=== PATIENT | male | born 1945 | race Caucasian/White ===

== ENCOUNTER → 2017-05-03 | Outpatient (CLI) | payer MEDICARE | LOC: LAB SHORT 11:13 → PLD 11:13 | DX: D22.5 Melanocytic nevi of trunk (principal) | CPT/HCPCS: 88305 ==

== ENCOUNTER → 2017-05-22 | Outpatient (CLI) | payer MEDICARE | LOC: PLD 13:25 → LAB SHORT 13:25 | DX: D03.59 Melanoma in situ of other part of trunk (principal) | CPT/HCPCS: 88305 ==

== ENCOUNTER → 2017-10-16 | Outpatient (CLI) | payer MEDICARE | END | disposition home or self-care (01) | LOC: LAB SHORT 08:24 → PLD 08:24 | DX: D23.62 Other benign neoplasm of skin of left upper limb, including shoulder (principal) | CPT/HCPCS: 88305 ==

== ENCOUNTER 2018-06-26 06:44 | Day surgery (SDC) | payer MEDICARE ==
[~2018-06-26] VITALS: Ht 185.4 cm; Wt 97.0 kg
[~2018-06-26 06:44] MED LIST: DIALYVITE50000 UNIT PO; ELIQUIS5 MG PO; LISI20 PO; MELATONIN5 M1 PO; MULTIVITAMIN PO; Norvasc2.5 MG PO; PANT40 PO; [UNRECOGNIZED DRUG - OTHER] PO
--- NOTE | 2018-06-26 08:15 | NUR ---
PROCEDURE COMPLETED WITHOUT KNOWN COMPLICATIONS OR ADVERSE EVENTS. NO DISCOMFORT VERBALIZED; NO SEDATION REQUIRED (OR REQUESTED) DESPITE IV ACCESS FOR NEEDS, IF NECESSARY. PT AWAKE/ALERT/APPROPRIATELY CONVERSIVE WITH CONTENT TO CONTEXT OF SITUATION. IV DC'D WITH CANNULA TIP INTACT. FOLDED 2X2 GAUZE PLACED WITH COBAN WRAP. VISITING WITH PATIENT. DISCHARGE INFORMATION PROVIDED IN PORTIONS BY PHYSICIAN, [employer] THERMOP[employer]IC TECHNICIAN AND RN. DISCHARGED BY AMBULATION.
== END 2018-06-26 22:39 | disposition home or self-care (01) ==
LOC: MHTC 06:44
DX: I48.0 Paroxysmal atrial fibrillation (principal); I10 Essential (primary) hypertension; K21.9 Gastro-esophageal reflux disease without esophagitis; M19.90 Unspecified osteoarthritis, unspecified site; K58.9 Irritable bowel syndrome, unspecified; R06.09 Other forms of dyspnea; D45 Polycythemia vera; Z88.2 Allergy status to sulfonamides; Z91.041 Radiographic dye allergy status; Z79.899 Other long term (current) drug therapy; Z79.01 Long term (current) use of anticoagulants; Z85.46 Personal history of malignant neoplasm of prostate; Z90.79 Acquired absence of other genital organ(s)
CPT/HCPCS: 33285; C1764; J2250; J3010

== ENCOUNTER 2018-09-03 08:14 | Day surgery (SDC) | payer MEDICARE ==
--- NOTE | 2018-09-03 16:27 | NUR ---
09/03/18 1627 Gauri Clancy LATE ENTRY FOR TODAY AT 0858 PATIENT TOOK HIS ELIQUIS AT 0700 THIS MORNING, DR. JOHNSON NOTIFIED, CASE HAS BEEN CANCELLED. PATIENT NEEDS TO RESCHEDULE. NO IV STARTED. PATIENT LEFT ORSC AT 0905.
== END 2018-09-03 09:05 | disposition home or self-care (01) ==
LOC: ORSCSDS 08:14
DX: K21.9 Gastro-esophageal reflux disease without esophagitis (principal); Z53.9 Procedure and treatment not carried out, unspecified reason; R12 Heartburn; R15.0 Incomplete defecation
CPT/HCPCS: J2704

== ENCOUNTER 2018-09-13 08:29 | Emergency (ER) | payer MEDICARE ==
[~2018-09-13] VITALS: Ht 190.5 cm; Wt 95.2 kg
[2018-09-13] MEDS ORDERED: AMLO5 (08:45)
[2018-09-13 09:15] LABS: BASOPHILS ABSOLUTE AUTO 0.02 K/mm3 (0.00-0.23); BASOPHILS PERCENT AUTO 0 % (0-2); EOSINOPHILS ABSOLUTE AUTO 0.08 K/mm3 (0.00-0.68); EOSINOPHILS PERCENT AUTO 1 % (0-6); Hematocrit 46.1 % (37.0-53.0); Hemoglobin 15.9 g/dL (13.5-17.5); IMMATURE GRAN ABSOLUTE AUTO 0.05 K/mm3 (0.00-0.10); IMMATURE GRAN PERCENT AUTO 1 % (0-1); LYMPHOCYTES ABSOLUTE AUTO 1.24 K/mm3 (0.84-5.20); LYMPHOCYTES PERCENT AUTO 16 % (21-46); MONOCYTES ABSOLUTE AUTO 0.45 K/mm3 (0.16-1.47); MONOCYTES PERCENT AUTO 6 % (4-13); Mean Corpuscular HGB 30.1 pg (26.0-34.0); Mean Corpuscular HGB Conc 34.5 g/dL (31.5-36.5); Mean Corpuscular Volume 87 fL (80-100); Mean Platelet Volume 9.4 fL (9.1-12.4); NEUTROPHILS PERCENT AUTO 77 % (41-73); Platelet Count 193 K/mm3 (150-400); RDW Coefficient Variation 12.5 % (11.7-14.2); RDW Standard Deviation 39.8 fL (35.1-46.3); Red Blood Cell Count 5.28 M/mm3 (4.30-5.90); White Blood Cell Count 7.84 K/mm3 (4.00-11.30)
[2018-09-13 09:38] LABS: Troponin I <0.015 ng/mL (0.000-0.040)
[2018-09-13 10:51] LABS: Alanine Aminotransfer (ALT/SGP 24 U/L (12-78); Albumin, Blood 3.7 g/dL (3.4-5.0); Albumin/Globulin Ratio 1.1 (0.8-1.8); Alk Phos 68 U/L (50-136); Aspartate Aminotrans (AST/SGOT 11 U/L (12-37); Bilirubin, Total 1.6 mg/dL (0.1-1.0); Blood Urea Nitrogen 24 mg/dL (8-24); Bun/Creatinine Ratio 30.1 (12.0-20.0); CO2, Blood 25 mmol/L (21-32); Calcium, Blood 8.7 mg/dL (8.5-10.1); Globulin, Blood 3.4 g/dL (2.2-4.0); Glomerular Filtration Rate >60 (60-); Glucose, Blood 108 mg/dL (70-99); Total Protein, Blood 7.1 g/dL (6.4-8.2)
[2018-09-13 11:06] LABS: Anion Gap 9 mmol/L (6-16); Chloride, Blood 108 mmol/L (98-108); Potassium, Blood 3.8 mmol/L (3.5-5.5); Sodium, Blood 142 mmol/L (136-145)
[2018-09-13] MEDS ORDERED: SUCR1 PO (11:22)
[2018-09-27] MEDS ORDERED: LISI20 PO (15:19)
[2018-09-27] MEDS ORDERED: Amlodipine Bes2.5 MG PO (15:19)
[2018-09-27] MEDS ORDERED: ELIQUIS5 MG PO (15:19)
[2018-09-27] MEDS ORDERED: VITAMIN D5000 UNIT PO (15:19)
[2018-09-27] MEDS ORDERED: PANT40 PO (15:19)
[2018-09-27] MEDS ORDERED: COMPLETE MULTI1 EAC1 PO (15:20)
[2018-09-27] MEDS ORDERED: MELATONIN5 M1 PO (15:20)
== END 2018-09-13 11:43 | disposition home or self-care (01) ==
LOC: ER 08:29
PROVIDERS: Emergency Medicine
DX: R07.89 Other chest pain (principal); K21.9 Gastro-esophageal reflux disease without esophagitis; Z88.2 Allergy status to sulfonamides
CPT/HCPCS: 36415; 71046; 80053; 83690; 84484; 85025; 93005; 93010; 99284-25

== ENCOUNTER 2018-10-08 07:54 | Day surgery (SDC) | payer MEDICARE ==
[~2018-10-08] VITALS: Ht 190.5 cm; Wt 93.7 kg
[~2018-10-08 07:54] MED LIST changes: +AMLO5; +Amlodipine Bes2.5 MG PO; +COMPLETE MULTI1 EAC1 PO; +SUCR1 PO; +VITAMIN D5000 UNIT PO
--- NOTE | 2018-10-08 08:23 | NUR ---
10/08/18 0823 Krys Bradford NOTED PATIENT APPEARS TO BE IN A-FIB. PATIENT STATES HIS HEARTRATE IS USUALLY IN THE LOW TO MID 50'S. HE TELLS ME HE IS ABLE TO MOW HIS YARD AND WORK AROUND THE YARD WITHOUT PROBLEMS, CHEST PAIN, ETC. WILL PROCEED CAUTIOUSLY.
== END 2018-10-08 10:05 | disposition home or self-care (01) ==
LOC: ORSCSDS 07:54
DX: K21.9 Gastro-esophageal reflux disease without esophagitis (principal); K31.7 Polyp of stomach and duodenum; I48.91 Unspecified atrial fibrillation; I10 Essential (primary) hypertension; K44.9 Diaphragmatic hernia without obstruction or gangrene; Z79.899 Other long term (current) drug therapy
CPT/HCPCS: 88305; J2704; J7120

== ENCOUNTER 2018-11-23 23:41 | Emergency (ER) | payer MEDICARE ==
[~2018-11-23] VITALS: Ht 190.5 cm; Wt 93.0 kg
[2018-11-24] MEDS ORDERED: Percocet 5-3251 EACH PO (03:01)
== END 2018-11-24 03:32 | disposition home or self-care (01) ==
LOC: ER 23:41
DX: M25.531 Pain in right wrist (principal); M79.641 Pain in right hand; Z88.2 Allergy status to sulfonamides; Z88.8 Allergy status to other drugs, medicaments and biological substances; Z79.899 Other long term (current) drug therapy; K21.9 Gastro-esophageal reflux disease without esophagitis; I48.91 Unspecified atrial fibrillation; W01.118A Fall on same level from slipping, tripping and stumbling with subsequent striking against other sharp object, initial encounter
CPT/HCPCS: 29125; 73110; 96372; 99283-25; A9270; J1885

== ENCOUNTER → 2019-09-09 | Outpatient (CLI) | payer MEDICARE ==
[~2019-09-09] MED LIST changes: +Percocet 5-3251 EACH PO
== END | disposition home or self-care (01) ==
LOC: PLD 12:03 → LAB SHORT 12:03
DX: D48.5 Neoplasm of uncertain behavior of skin (principal)
CPT/HCPCS: 88305

== ENCOUNTER → 2019-12-04 | Outpatient (CLI) | payer MEDICARE | LOC: LAB SHORT 19:07 → PLD 19:07 | DX: N39.0 Urinary tract infection, site not specified (principal) | CPT/HCPCS: 87086 ==

== ENCOUNTER → 2020-06-04 | Outpatient (CLI) | payer MEDICARE | END | disposition home or self-care (01) | LOC: LAB 10:30 → LAB SHORT 10:30 | DX: L08.0 Pyoderma (principal) | CPT/HCPCS: 87070; 87205 ==

== ENCOUNTER → 2021-03-08 | Outpatient (CLI) | payer MEDICARE | END | disposition home or self-care (01) | LOC: LAB 11:10 → LAB SHORT 11:10 | DX: D48.5 Neoplasm of uncertain behavior of skin (principal) ==

== ENCOUNTER → 2021-07-14 | Outpatient (CLI) | payer MEDICARE | END | disposition home or self-care (01) | LOC: LAB SHORT 10:50 → PLD 10:50 | DX: D48.5 Neoplasm of uncertain behavior of skin (principal) | CPT/HCPCS: 88305 ==

== ENCOUNTER → 2021-08-16 | Outpatient (CLI) | payer MEDICARE | END | disposition home or self-care (01) | LOC: LAB SHORT 12:38 → PLD 12:38 → LAB 12:38 | DX: D48.5 Neoplasm of uncertain behavior of skin (principal) | CPT/HCPCS: 88305 ==

== ENCOUNTER 2021-10-28 12:17 | Day surgery (SDC) | payer MEDICARE ==
--- NOTE | 2021-10-28 13:19 | NUR ---
PATIENT ARRIVED FOR LOOP RECORDER EXPLANT. PATIENT WAS BROUGHT TO THE PROCEDURE ROOM WITH AND PREPPED. CONSENT VERIFIED. CHEST SHAVED. PATIENT DRAPPED. DR. DINH AT THE BEDSIDE. PATIENT PROCEDURE PERFORMED. LOOP EXPLANTED AND WOULD IRRIAGATED WITH ANCEF BY DR. DINH AND SITE SEWN UP WITH 4.0 VICRYL. STERI STRIPS PLACED, DERMABOND, TELFA AND TEGADERM.
== END 2021-10-28 23:49 | disposition home or self-care (01) ==
LOC: MHTC 12:17
DX: Z45.09 Encounter for adjustment and management of other cardiac device (principal)
CPT/HCPCS: 33286; J0690

== ENCOUNTER 2022-01-31 09:50 | Emergency (ER) | payer MEDICARE ==
[~2022-01-31] VITALS: Ht 190.5 cm; Wt 88.5 kg
[2022-01-31 10:54] LABS: BASOPHILS ABSOLUTE AUTO 0.02 K/mm3 (0.00-0.23); BASOPHILS PERCENT AUTO 0 % (0-2); EOSINOPHILS ABSOLUTE AUTO 0.07 K/mm3 (0.00-0.68); EOSINOPHILS PERCENT AUTO 1 % (0-6); Hematocrit 43.7 % (37.0-53.0); Hemoglobin 14.9 g/dL (13.5-17.5); IMMATURE GRAN ABSOLUTE AUTO 0.03 K/mm3 (0.00-0.10); IMMATURE GRAN PERCENT AUTO 0 % (0-1); LYMPHOCYTES ABSOLUTE AUTO 1.01 K/mm3 (0.84-5.20); LYMPHOCYTES PERCENT AUTO 15 % (21-46); MONOCYTES ABSOLUTE AUTO 0.66 K/mm3 (0.16-1.47); MONOCYTES PERCENT AUTO 10 % (4-13); Mean Corpuscular HGB 29.9 pg (26.0-34.0); Mean Corpuscular HGB Conc 34.1 g/dL (31.5-36.5); Mean Corpuscular Volume 88 fL (80-100); Mean Platelet Volume 9.3 fL (9.1-12.4); NEUTROPHILS ABSOLUTE AUTO 5.19 K/mm3 (1.96-9.15); NEUTROPHILS PERCENT AUTO 74 % (41-73); Platelet Count 190 K/mm3 (150-400); RDW Coefficient Variation 12.5 % (11.7-14.2); RDW Standard Deviation 40.4 fL (35.1-46.3); Red Blood Cell Count 4.98 M/mm3 (4.30-5.90); White Blood Cell Count 6.98 K/mm3 (4.00-11.30)
[2022-01-31 11:14] LABS: Albumin, Blood 3.3 g/dL (3.4-5.0); Albumin/Globulin Ratio 0.8 (0.8-1.8); Bilirubin, Total 1.1 mg/dL (0.1-1.0); Bun/Creatinine Ratio 21.7 (12.0-20.0); Calcium, Blood 9.1 mg/dL (8.5-10.1); Creatinine, Blood 0.74 mg/dL (0.60-1.20); Potassium, Blood 3.9 mmol/L (3.5-5.5); Total Protein, Blood 7.3 g/dL (6.4-8.2)
[2022-01-31] MEDS ORDERED: BENZ100A PO (11:52)
== END 2022-01-31 13:51 | disposition home or self-care (01) ==
LOC: ER 09:50
PROVIDERS: Physician Assistant
DX: U07.1 COVID-19 (principal); R04.2 Hemoptysis; D68.32 Hemorrhagic disorder due to extrinsic circulating anticoagulants; T45.515A Adverse effect of anticoagulants, initial encounter; Z88.2 Allergy status to sulfonamides; Z91.048 Other nonmedicinal substance allergy status; Z79.899 Other long term (current) drug therapy; Z79.01 Long term (current) use of anticoagulants
CPT/HCPCS: 36415; 71045; 80053; 83690; 83880; 84484; 85025; 93005; 93010; A9270; J2765

== ENCOUNTER → 2022-02-28 | Outpatient (CLI) | payer MEDICARE ==
[~2022-02-28] MED LIST changes: +AMLO10 PO; -Amlodipine Bes2.5 MG PO; +BENZ100A PO; +PANT20 PO
== END | disposition home or self-care (01) ==
LOC: LAB SHORT 08:02 → PLD 08:02
DX: L57.0 Actinic keratosis (principal); L85.9 Epidermal thickening, unspecified; L90.5 Scar conditions and fibrosis of skin
CPT/HCPCS: 88305

== ENCOUNTER 2022-03-03 13:22 | Emergency (ER) | payer MEDICARE ==
[~2022-03-03] VITALS: Ht 190.5 cm; Wt 89.8 kg
[~2022-03-03 13:22] MED LIST changes: -PANT20 PO
[2022-03-03] MEDS ORDERED: PANT20 PO (15:20)
== END 2022-03-03 16:01 | disposition home or self-care (01) ==
LOC: ER 13:22
DX: M25.571 Pain in right ankle and joints of right foot (principal); I48.91 Unspecified atrial fibrillation; Z88.2 Allergy status to sulfonamides; Z91.041 Radiographic dye allergy status; Z79.899 Other long term (current) drug therapy; Z79.01 Long term (current) use of anticoagulants; W01.0XXA Fall on same level from slipping, tripping and stumbling without subsequent striking against object, initial encounter
CPT/HCPCS: 73610

== ENCOUNTER 2022-03-19 12:02 | Emergency (ER) | payer MEDICARE ==
[~2022-03-19] VITALS: Ht 190.5 cm; Wt 90.7 kg
[~2022-03-19 12:02] MED LIST changes: +PANT20 PO
== END 2022-03-19 14:30 | disposition left against medical advice (07) ==
LOC: ER 12:02
DX: S93.401A Sprain of unspecified ligament of right ankle, initial encounter (principal); K21.9 Gastro-esophageal reflux disease without esophagitis; X58.XXXA Exposure to other specified factors, initial encounter; Z88.2 Allergy status to sulfonamides; Z91.09 Other allergy status, other than to drugs and biological substances; Z79.01 Long term (current) use of anticoagulants; Z79.899 Other long term (current) drug therapy
CPT/HCPCS: 99283

== ENCOUNTER 2022-08-02 10:11 | Day surgery (SDC) | payer MEDICARE ==
[~2022-08-02] VITALS: Ht 190.5 cm; Wt 85.7 kg
[2022-08-02] MEDS ORDERED: Bentyl20 MG (10:34)
[2022-08-02] MEDS ORDERED: TRIDERM28.4 GM (10:35)
[2022-08-02 12:53] VITALS: BP 126/76
== END 2022-08-02 12:52 | disposition home or self-care (01) ==
LOC: ORSCSDS 10:11
PROVIDERS: Student in an Organized Health Care Education/Training Program
PROC: 0DBC8ZX Excision of Ileocecal Valve, Via Natural or Artificial Opening Endoscopic, Diagnostic (ICD-10-PCS; principal; 2022-08-02 11:30)
PROC: 0DBL8ZX Excision of Transverse Colon, Via Natural or Artificial Opening Endoscopic, Diagnostic (ICD-10-PCS; principal; 2022-08-02 11:30)
DX: K59.09 Other constipation (principal); R10.12 Left upper quadrant pain; D12.3 Benign neoplasm of transverse colon; D12.0 Benign neoplasm of cecum; I10 Essential (primary) hypertension; K21.9 Gastro-esophageal reflux disease without esophagitis; I48.91 Unspecified atrial fibrillation; Z79.01 Long term (current) use of anticoagulants; G70.00 Myasthenia gravis without (acute) exacerbation; Z79.899 Other long term (current) drug therapy
CPT/HCPCS: 88305; J2704; J7120

== ENCOUNTER → 2022-08-09 | Outpatient (CLI) | payer MEDICARE ==
[~2022-08-09] MED LIST changes: +Bentyl20 MG; +TRIDERM28.4 GM
== END ==
LOC: LAB SHORT 16:11 → LAB 16:11
DX: L08.0 Pyoderma (principal)
CPT/HCPCS: 87070; 87205

== ENCOUNTER 2022-11-18 11:43 | Emergency (ER) | payer MEDICARE ==
[~2022-11-18] VITALS: Ht 190.5 cm; Wt 93.0 kg
[2022-11-18 12:15] VITALS: BP 137/71
== END 2022-11-18 15:00 | disposition home or self-care (01) ==
LOC: ER 11:43
DX: S60.221A Contusion of right hand, initial encounter (principal); I48.91 Unspecified atrial fibrillation; K21.9 Gastro-esophageal reflux disease without esophagitis; Z88.8 Allergy status to other drugs, medicaments and biological substances; Z88.2 Allergy status to sulfonamides; Z79.01 Long term (current) use of anticoagulants; Z79.899 Other long term (current) drug therapy; W10.9XXA Fall (on) (from) unspecified stairs and steps, initial encounter
CPT/HCPCS: 70450; 73130; 99283-25

== ENCOUNTER 2023-12-11 17:14 | Emergency (ER) | payer MEDICARE ==
[~2023-12-11] VITALS: Ht 190.5 cm; Wt 82.5 kg
[2023-12-11 17:44] LABS: BASOPHILS ABSOLUTE AUTO 0.03 K/mm3 (0.00-0.23); BASOPHILS PERCENT AUTO 0 % (0-2); EOSINOPHILS ABSOLUTE AUTO 0.04 K/mm3 (0.00-0.68); EOSINOPHILS PERCENT AUTO 0 % (0-6); Hematocrit 42.4 % (37.0-53.0); Hemoglobin 14.8 g/dL (13.5-17.5); IMMATURE GRAN ABSOLUTE AUTO 0.05 K/mm3 (0.00-0.10); IMMATURE GRAN PERCENT AUTO 0 % (0-1); LYMPHOCYTES ABSOLUTE AUTO 1.36 K/mm3 (0.84-5.20); LYMPHOCYTES PERCENT AUTO 9 % (21-46); MONOCYTES ABSOLUTE AUTO 0.85 K/mm3 (0.16-1.47); MONOCYTES PERCENT AUTO 6 % (4-13); Mean Corpuscular HGB 30.2 pg (26.0-34.0); Mean Corpuscular HGB Conc 34.9 g/dL (31.5-36.5); Mean Corpuscular Volume 87 fL (80-100); Mean Platelet Volume 9.1 fL (9.1-12.4); NEUTROPHILS ABSOLUTE AUTO 12.99 K/mm3 (1.96-9.15); NEUTROPHILS PERCENT AUTO 85 % (41-73); Platelet Count 196 K/mm3 (150-400); RDW Coefficient Variation 12.5 % (11.7-14.2); RDW Standard Deviation 39.4 fL (35.1-46.3); White Blood Cell Count 15.32 K/mm3 (4.00-11.30)
[2023-12-11 17:58] LABS: Albumin, Blood 3.5 g/dL (3.4-5.0); Albumin/Globulin Ratio 0.9 (0.8-1.8); Bun/Creatinine Ratio 25.6 (12.0-20.0); Calcium, Blood 9.2 mg/dL (8.5-10.1); Creatinine, Blood 0.98 mg/dL (0.60-1.20); Globulin, Blood 3.9 g/dL (2.2-4.0); Potassium, Blood 3.8 mmol/L (3.5-5.5); Total Protein, Blood 7.4 g/dL (6.4-8.2)
[2023-12-11 22:55] VITALS: BP 125/63
== END 2023-12-11 22:56 | disposition home or self-care (01) ==
LOC: ER 17:14
PROVIDERS: Student in an Organized Health Care Education/Training Program
DX: R07.89 Other chest pain (principal); K21.9 Gastro-esophageal reflux disease without esophagitis; I48.91 Unspecified atrial fibrillation; K44.9 Diaphragmatic hernia without obstruction or gangrene; G70.00 Myasthenia gravis without (acute) exacerbation; Z88.8 Allergy status to other drugs, medicaments and biological substances; Z88.2 Allergy status to sulfonamides; Z91.041 Radiographic dye allergy status; Z79.01 Long term (current) use of anticoagulants; Z79.899 Other long term (current) drug therapy
CPT/HCPCS: 71046; 80053; 84484; 85025

== ENCOUNTER 2024-03-21 04:25 | Emergency (ER) | payer MEDICARE ==
[~2024-03-21] VITALS: Ht 190.5 cm; Wt 86.2 kg
[2024-03-21] MEDS ORDERED: Mag Hydrox/AL Hydrox/Simeth 30 ML UDC PO ONE (04:35)
[2024-03-21 04:53] LABS: BASOPHILS ABSOLUTE AUTO 0.02 K/mm3 (0.00-0.23); BASOPHILS PERCENT AUTO 0 % (0-2); EOSINOPHILS ABSOLUTE AUTO 0.11 K/mm3 (0.00-0.68); EOSINOPHILS PERCENT AUTO 2 % (0-6); Hematocrit 40.8 % (37.0-53.0); Hemoglobin 14.1 g/dL (13.5-17.5); IMMATURE GRAN ABSOLUTE AUTO 0.04 K/mm3 (0.00-0.10); IMMATURE GRAN PERCENT AUTO 1 % (0-1); LYMPHOCYTES ABSOLUTE AUTO 1.27 K/mm3 (0.84-5.20); LYMPHOCYTES PERCENT AUTO 17 % (21-46); MONOCYTES ABSOLUTE AUTO 0.46 K/mm3 (0.16-1.47); MONOCYTES PERCENT AUTO 6 % (4-13); Mean Corpuscular HGB 30.3 pg (26.0-34.0); Mean Corpuscular HGB Conc 34.6 g/dL (31.5-36.5); Mean Corpuscular Volume 88 fL (80-100); Mean Platelet Volume 8.8 fL (9.1-12.4); NEUTROPHILS ABSOLUTE AUTO 5.52 K/mm3 (1.96-9.15); NEUTROPHILS PERCENT AUTO 74 % (41-73); Platelet Count 189 K/mm3 (150-400); RDW Coefficient Variation 12.7 % (11.7-14.2); RDW Standard Deviation 40.6 fL (35.1-46.3); Red Blood Cell Count 4.65 M/mm3 (4.30-5.90); White Blood Cell Count 7.42 K/mm3 (4.00-11.30)
[2024-03-21 05:12] LABS: Albumin, Blood 3.4 g/dL (3.4-5.0); Albumin/Globulin Ratio 0.9 (0.8-1.8); Bilirubin, Total 0.9 mg/dL (0.1-1.0); Bun/Creatinine Ratio 22.3 (12.0-20.0); Calcium, Blood 8.9 mg/dL (8.5-10.1); Creatinine, Blood 0.81 mg/dL (0.60-1.20); Globulin, Blood 3.7 g/dL (2.2-4.0); Total Protein, Blood 7.1 g/dL (6.4-8.2)
[2024-03-21 07:45] VITALS: BP 175/79
== END 2024-03-21 08:08 | disposition home or self-care (01) ==
LOC: ER 04:25
PROVIDERS: Emergency Medicine
DX: R07.89 Other chest pain (principal); K21.9 Gastro-esophageal reflux disease without esophagitis; Z79.899 Other long term (current) drug therapy; Z88.2 Allergy status to sulfonamides; Z91.041 Radiographic dye allergy status; Z88.8 Allergy status to other drugs, medicaments and biological substances
CPT/HCPCS: 71045; 80053; 83690; 83880; 84484; 85025; 93005; 93010; 99285-25; A9270

== ENCOUNTER 2024-04-06 14:32 | Emergency (ER) | payer MEDICARE ==
[~2024-04-06] VITALS: Ht 190.5 cm; Wt 85.7 kg
[2024-04-06 15:15] VITALS: BP 127/96
[2024-04-06] MEDS ORDERED: HYDCOR2.5C PR (16:57)
== END 2024-04-06 17:05 | disposition home or self-care (01) ==
LOC: ER 14:32
DX: R21 Rash and other nonspecific skin eruption (principal); L29.9 Pruritus, unspecified; Z88.2 Allergy status to sulfonamides; Z88.8 Allergy status to other drugs, medicaments and biological substances; Z91.048 Other nonmedicinal substance allergy status; Z79.01 Long term (current) use of anticoagulants
CPT/HCPCS: 99282

== ENCOUNTER 2024-04-20 07:30 | Emergency (ER) | payer MEDICARE ==
[~2024-04-20] VITALS: Ht 190.5 cm; Wt 81.7 kg
[~2024-04-20 07:30] MED LIST changes: +HYDCOR2.5C PR
[2024-04-20 08:45] LABS: Source, Urine Clean Catch
[2024-04-20 08:50] LABS: Bilirubin, Urine Neg (Neg); Blood, Urine 2+ (Neg); Glucose Qualitative, Urine Neg (Neg); Ketones, Urine Neg (Neg); Leukocyte Esterase, Urine Neg (Neg); Nitrite, Urine Neg (Neg); Protein, Urine Neg (Neg); Urobilinogen, Urine NORM (Normal)
[2024-04-20 08:57] LABS: Appearance, Urine Hazy (Clear); Bacteria Not Seen /hpf; Color, Urine Yellow (P-Yellow); Squamous Epithelial Cells Rare /hpf (Few); White Blood Cells, Urine Not Seen /hpf (0-5)
[2024-04-20] MEDS ORDERED: ALEVAZOL56.7 G1 TOP (09:24)
[2024-04-20 09:54] VITALS: BP 170/98
== END 2024-04-20 09:55 | disposition home or self-care (01) ==
LOC: ER 07:30
PROVIDERS: Student in an Organized Health Care Education/Training Program
DX: B37.42 Candidal balanitis (principal); R30.0 Dysuria; K21.9 Gastro-esophageal reflux disease without esophagitis; I48.91 Unspecified atrial fibrillation; Z79.899 Other long term (current) drug therapy; Z88.2 Allergy status to sulfonamides; Z91.041 Radiographic dye allergy status; Z88.8 Allergy status to other drugs, medicaments and biological substances
CPT/HCPCS: 81001; 99283

== ENCOUNTER 2024-04-28 07:01 | Observation (INO) | payer MEDICARE ==
[~2024-04-28] VITALS: Ht 190.5 cm; Wt 78.6 kg
[~2024-04-28 07:01] MED LIST changes: +ALEVAZOL56.7 G1 TOP; -PANT20 PO
[2024-04-28 07:41] LABS: BASOPHILS ABSOLUTE AUTO 0.03 K/mm3 (0.00-0.23); BASOPHILS PERCENT AUTO 0 % (0-2); EOSINOPHILS ABSOLUTE AUTO 0.02 K/mm3 (0.00-0.68); EOSINOPHILS PERCENT AUTO 0 % (0-6); Hematocrit 45.7 % (37.0-53.0); Hemoglobin 15.3 g/dL (13.5-17.5); IMMATURE GRAN ABSOLUTE AUTO 0.07 K/mm3 (0.00-0.10); IMMATURE GRAN PERCENT AUTO 0 % (0-1); LYMPHOCYTES ABSOLUTE AUTO 0.79 K/mm3 (0.84-5.20); LYMPHOCYTES PERCENT AUTO 5 % (21-46); MONOCYTES ABSOLUTE AUTO 0.96 K/mm3 (0.16-1.47); MONOCYTES PERCENT AUTO 6 % (4-13); Mean Corpuscular HGB 30.5 pg (26.0-34.0); Mean Corpuscular HGB Conc 33.5 g/dL (31.5-36.5); Mean Corpuscular Volume 91 fL (80-100); Mean Platelet Volume 9.1 fL (9.1-12.4); NEUTROPHILS ABSOLUTE AUTO 14.91 K/mm3 (1.96-9.15); NEUTROPHILS PERCENT AUTO 89 % (41-73); Platelet Count 172 K/mm3 (150-400); RDW Coefficient Variation 12.5 % (11.7-14.2); Red Blood Cell Count 5.02 M/mm3 (4.30-5.90); White Blood Cell Count 16.78 K/mm3 (4.00-11.30)
[2024-04-28] MEDS ORDERED: Aspirin 325 MG Tab PO ONE (07:55)
[2024-04-28 07:59] LABS: Albumin, Blood 3.5 g/dL (3.4-5.0); Albumin/Globulin Ratio 0.9 (0.8-1.8); Bilirubin, Total 1.8 mg/dL (0.1-1.0); Bun/Creatinine Ratio 27.1 (12.0-20.0); Creatinine, Blood 0.74 mg/dL (0.60-1.20); Globulin, Blood 4.1 g/dL (2.2-4.0); Total Protein, Blood 7.6 g/dL (6.4-8.2)
[2024-04-28] MEDS ORDERED: D5W-1/2NS KCl 20mEq 1,000 ML IV SCH (12:00)
[2024-04-28 14:42] VITALS: BP 174/78
[2024-04-28] MEDS ORDERED: MELATONIN5 M1 PO (14:50)
[2024-04-28] MEDS ORDERED: VITAMIN D5000 UNIT PO (14:51)
--- NOTE | 2024-04-28 16:42 | NUR ---
PT ADMITTED TO ROOM 354 FROM ED, WHEELCHAIR TX. PT ABLE TO AMBULATE SBA, STEADY ON FEET. ACCOMPANYING PT, ABLE TO HELP WITH HX QUESTIONS SINCE PT HAS HX ALZHEIMERS AND NOT A GREAT HISTORIAN. FAMILY ORIENTED TO ROOM AND CALL LIGHT AND SAFETY INCLUDING BED ALARM. PT DENIES CHEST PAIN CURRENTLY, STATES HE HAS "BURNING IN HIS ESOPHAGUS". COMPLETED HX AND ASSESSMENT
[2024-04-28] MEDS ORDERED: Mag Hydrox/AL Hydrox/Simeth 30 ML UDC PO ONE (17:00)
[2024-04-28] MEDS ORDERED: Mag Hydrox/AL Hydrox/Simeth 30 ML UDC PO PRN (17:00)
--- NOTE | 2024-04-28 17:29 | NUR ---
SUMMARY- PT ALERT TO SELF, PLACE AND CIRCUMSTANCES, SOFT VERBAL HX OF ALZHEIMERS; A POOR HISTORIAN. MILDLY FORGETFUL TO DETAILS. PT HAS REMEMBERED TO USE CALL LIGHT, AMBULATES TO BATHROOM SBA. WHEN ASKED IF PT HAD CHEST PAIN HE STATED HE HAD "BURNING IN HIS ESPHAGUS" RECEIVED AN ORDER FOR MAALOX WITH SUBSEQUENT RELEIF OF HEART BURN. NO OTHER COMPLAINTS OF CHEST PAIN, INSTRUCTED TO CALL SHOULD CHEST PAIN RESUME. PT TOLERATING FLUIDS. WILL HAVE DINNER AND NPO AFTER MIDNIGHT. WILL REPORT TO NOC RN
[2024-04-28 19:34] VITALS: BP 159/89
[2024-04-28] MEDS ORDERED: Melatonin 5 MG Tablet PO SCH (21:00)
[2024-04-28] MEDS ORDERED: Apixaban 5 MG Tab PO SCH (21:00)
[2024-04-29 03:03] VITALS: BP 156/86
[2024-04-29] MEDS ORDERED: Pantoprazole Sodium 40 MG Tab PO SCH (06:00)
[2024-04-29 07:38] VITALS: BP 183/75
[2024-04-29 13:02] VITALS: BP 186/81
[2024-04-29] MEDS ORDERED: Regadenoson 0.4 MG/5 ML SYRINGE ONE (14:04)
[2024-04-29] MEDS ORDERED: Caffeine Citrated 60 MG/3 ML Vial ONE (14:04)
--- NOTE | 2024-04-29 16:08 | NUR ---
SHIFT SUMMARY MR CELIS IS ORIENTATED TO SELF, PLACE, SITUATION, NOT DATE AND GENERALLY FORGETFUL. HIS IS AT HIS BEDSIDE. SECOND PART OF STRESS TEST JUST COMPLETED. MR CELIS HAS DENIED CHEST PAIN TO RN. HE HAS BEEN ANXIOUS TO HAVE TESTING COMPLETED AND BE DISCHARGED FROM HOSPITAL. BP ELEVATED. DR LERMA AWARE OF BP. PT AND HIS DENY HAVING HISTORY OF HYPERTENSION. BED LOW, CALL LIGHT IN REACH.
[2024-04-29 16:29] VITALS: BP 122/65
[2024-04-29 20:35] VITALS: BP 189/84
[2024-04-30 00:04] VITALS: BP 194/84
--- NOTE | 2024-04-30 00:26 | NUR ---
DR. TRIMBLE NOTIFIED OF PT ELEVATED BP READINGS AT 2035 AND 0000, PT ASYMPTOMATIC. MD TO REVIEW CHART AND ENTER ORDERS.
[2024-04-30] MEDS ORDERED: HydrALAZINE HCl 20 MG / ML 1ML Vial IV PRN (00:40)
[2024-04-30 01:20] VITALS: BP 164/84
[2024-04-30 02:54] VITALS: BP 170/86
--- NOTE | 2024-04-30 04:33 | NUR ---
SOCCER BALL ASSEMBLER SUMMARY: PT ADMITTED FOR CP/SOB. FULL CODE. A&O X3-4, FORGETFUL. NOTED DX OF MILD DEMENTIA / ALZHEIMER'S. PT INDEPENDENT WITH BED MOBILITY. AMBULATED 1 PERSON SBA TO BATHROOM TO VOID X1. NOTED ELEVATED BP READINGS AT 2034: 189/84, 0004: 194/84. PER GRANTS SPECIALIST: SR @64 WITH PAC'S. DENIES CP / CHEST PRESSURE. DR. TRIMBLE NOTIFIED. NEW ORDER FOR HYDRALAZINE 10MG IV Q 4HR PRN. MANUAL RECHECK BP PRIOR TO ADMINISTERING PRN HYDRALAZINE AT 0118: 164/84. PERAMETERS NOT MET TO ADMINISTER MEDICATION. PLAN TO D/C HOME IN AM PENDING 2ND STRESS TEST RESULTS. AT APPROXIMATELY 0245 THIS NURSE WAS NOTIFIED THAT PT GOT OOB AND WANDERED THROUGH HALLWAY WHILE THIS NURSE WAS ON BREAK. STAFF ASSISTED PT BACK TO BED. REASSESSMENT OF PT ORIENTATION AROUND 0250, PT ORIENTED TO PERSON, PLACE (TOWN), TIME (MONTH AND YEAR). PT ABLE TO STATE HE IS IN THE HOSPITAL AND WHY HE IS AT THE HOSPITAL AT BEGINNING OF SHIFT. PT UP OOB MULTIPLE TIMES BETWEEN 0300 AND 0415. THIS NURSE ASSISTED PT WHILE AMBULATING UP AND DOWN HALLWAY. PT ASSISTED TO CALL HIS . THIS NURSE SPOKE WITH PT'S AND SHE RADHA HX OF INGIN AND THAT THIS IS A NEW ONSET OF HS CONFUSION. SHE DOES CONFIRM HX OF SOME MILD CONFUSION, BUT NOT TO THIS EXTENT. PT REPORTS VISUAL HALLUCINATIONS TO THIS NURSE AND HIS WHILE SPEAKING TO HER ON THE PHONE. NO S/S OF PAIN OR DISTRESS. DENIES PAIN WHEN ASKED. PT REPORTS FEELING "AT EASE" AFTER SPEAKING WITH HIS AND ASSISTED BACK TO BED. PT ENCOURAGED TO GET SOME SLEEP. CALL LIGHT IN REACH. BED IN LOWEST POSITION. BED ALARM ON. CARES CONTINUE ORDERED. WILL CONTINUE TO MONITOR.
[2024-04-30 06:11] LABS: BASOPHILS ABSOLUTE AUTO 0.01 K/mm3 (0.00-0.23); BASOPHILS PERCENT AUTO 0 % (0-2); EOSINOPHILS ABSOLUTE AUTO 0.02 K/mm3 (0.00-0.68); EOSINOPHILS PERCENT AUTO 0 % (0-6); Hematocrit 41.7 % (37.0-53.0); Hemoglobin 14.2 g/dL (13.5-17.5); IMMATURE GRAN ABSOLUTE AUTO 0.03 K/mm3 (0.00-0.10); IMMATURE GRAN PERCENT AUTO 0 % (0-1); LYMPHOCYTES ABSOLUTE AUTO 0.72 K/mm3 (0.84-5.20); LYMPHOCYTES PERCENT AUTO 8 % (21-46); MONOCYTES ABSOLUTE AUTO 0.45 K/mm3 (0.16-1.47); MONOCYTES PERCENT AUTO 5 % (4-13); Mean Corpuscular HGB 29.5 pg (26.0-34.0); Mean Corpuscular HGB Conc 34.1 g/dL (31.5-36.5); Mean Corpuscular Volume 87 fL (80-100); Mean Platelet Volume 9.1 fL (9.1-12.4); NEUTROPHILS ABSOLUTE AUTO 7.47 K/mm3 (1.96-9.15); NEUTROPHILS PERCENT AUTO 86 % (41-73); Platelet Count 197 K/mm3 (150-400); RDW Coefficient Variation 12.3 % (11.7-14.2); RDW Standard Deviation 39.3 fL (35.1-46.3); Red Blood Cell Count 4.81 M/mm3 (4.30-5.90)
--- NOTE | 2024-04-30 06:25 | NUR ---
PT CONTINUES TO BE AGITATED AND HAVE VISUAL HALLUCINATIONS. DR. TRIMBLE NOTIFIED OF CHANGES AND 'S CONCERN (SEE SHIFT SUMMARY). MD TO REVIEW CHART AND MAKE CHANGES IF NEEDED. TO PASS ONTO ONCOMING RN.
[2024-04-30 06:35] LABS: Creatinine, Blood 0.75 mg/dL (0.60-1.20); Potassium, Blood 3.8 mmol/L (3.5-5.5)
[2024-04-30 07:13] VITALS: BP 195/82
[2024-04-30] MEDS ORDERED: Prinivil10 MG PO (08:09)
--- NOTE | 2024-04-30 08:29 | NUR ---
DISCHARGE NOTE PT DISCHARGED TO HOME, PICKED UP BY HIS . TELE RETURNED, IV REMOVED. PROVIDER EDUCATED AND NURSE EDUCATED ON PT'S CURRENT SITUATION. DISCHARGE PACKET PROVIDED TO PT'S . PT WALKED DOWN TO VEHICLE BY NURSE.
--- NOTE | 2024-04-30 08:30 | NUR ---
NOTE: PT BP ELEVATED THIS AM, MEDICATED PER THE EMAR. PROVIDER AWARE.
[2024-04-30] MEDS ORDERED: Lisinopril 10 MG Tab PO SCH (09:00)
== END 2024-04-30 08:26 | disposition home or self-care (01) ==
LOC: ER 07:01 → MEDS 07:02
PROVIDERS: Emergency Medicine; Family Medicine; ADMIT Internal Medicine Endocrinology, Diabetes & Metabolism
DX: I25.9 Chronic ischemic heart disease, unspecified (principal); I48.20 Chronic atrial fibrillation, unspecified; K21.9 Gastro-esophageal reflux disease without esophagitis; G30.9 Alzheimer's disease, unspecified; F02.A0 Dementia in other diseases classified elsewhere, mild, without behavioral disturbance, psychotic disturbance, mood disturbance, and anxiety; G47.00 Insomnia, unspecified; I10 Essential (primary) hypertension; G70.00 Myasthenia gravis without (acute) exacerbation; Z88.2 Allergy status to sulfonamides; Z91.041 Radiographic dye allergy status; Z79.01 Long term (current) use of anticoagulants; Z79.899 Other long term (current) drug therapy; E78.00 Pure hypercholesterolemia, unspecified
CPT/HCPCS: 36415; 71046; 78452; 80048; 80053; 83690; 83880; 84484; 85025; 93005; 93010; 93017; 96374; 99285-25; A9270; A9500; G0378; J0360; J0706; J2785

== ENCOUNTER 2024-12-27 11:57 | Emergency (ER) | payer MEDICARE ==
[~2024-12-27] VITALS: Ht 190.5 cm; Wt 81.7 kg
[~2024-12-27 11:57] MED LIST changes: +Prinivil10 MG PO
[2024-12-27 12:10] VITALS: BP 140/75
[2024-12-27] MEDS ORDERED: CEPH500 PO (12:16)
== END 2024-12-27 12:20 | disposition home or self-care (01) ==
LOC: ER 11:57
DX: T81.49XA Infection following a procedure, other surgical site, initial encounter (principal); L03.312 Cellulitis of back [any part except buttock and flank]; I48.91 Unspecified atrial fibrillation; K21.9 Gastro-esophageal reflux disease without esophagitis; Z88.2 Allergy status to sulfonamides; Z91.041 Radiographic dye allergy status; Z79.01 Long term (current) use of anticoagulants; Z79.899 Other long term (current) drug therapy
CPT/HCPCS: 99283

== ENCOUNTER 2024-12-30 05:10 | Emergency (ER) | payer MEDICARE ==
[~2024-12-30] VITALS: Ht 190.5 cm; Wt 78.0 kg
[~2024-12-30 05:10] MED LIST changes: +CEPH500 PO
[2024-12-30 05:54] LABS: BASOPHILS ABSOLUTE AUTO 0.03 K/mm3 (0.00-0.23); BASOPHILS PERCENT AUTO 0 % (0-2); EOSINOPHILS ABSOLUTE AUTO 0.13 K/mm3 (0.00-0.68); EOSINOPHILS PERCENT AUTO 2 % (0-6); Hematocrit 42.4 % (37.0-53.0); Hemoglobin 15.0 g/dL (13.5-17.5); IMMATURE GRAN ABSOLUTE AUTO 0.04 K/mm3 (0.00-0.10); IMMATURE GRAN PERCENT AUTO 1 % (0-1); LYMPHOCYTES ABSOLUTE AUTO 1.32 K/mm3 (0.84-5.20); LYMPHOCYTES PERCENT AUTO 18 % (21-46); MONOCYTES ABSOLUTE AUTO 0.42 K/mm3 (0.16-1.47); MONOCYTES PERCENT AUTO 6 % (4-13); Mean Corpuscular HGB Conc 35.4 g/dL (31.5-36.5); Mean Corpuscular Volume 85 fL (80-100); NEUTROPHILS ABSOLUTE AUTO 5.61 K/mm3 (1.96-9.15); NEUTROPHILS PERCENT AUTO 74 % (41-73); NRBC ABSOLUTE 0.00 K/mm3 (0.00-0.02); NRBC Auto 0.0 /100 WBC (0.0-0.2); Platelet Count 188 K/mm3 (150-400); RDW Coefficient Variation 12.6 % (11.7-14.2); RDW Standard Deviation 38.5 fL (35.1-46.3)
[2024-12-30 06:08] LABS: Prothrombin Time Results 11.9 Sec (9.7-11.5)
[2024-12-30 06:16] LABS: Alanine Aminotransfer (ALT/SGP 23.0 U/L (12-78); Albumin, Blood 3.4 g/dL (3.4-5.0); Albumin/Globulin Ratio 1.0 (0.8-1.8); Anion Gap 8.0 mmol/L (3-11); Aspartate Aminotrans (AST/SGOT 19.0 U/L (12-37); Bilirubin, Total 1.6 mg/dL (0.1-1.0); Blood Urea Nitrogen 19.0 mg/dL (8-24); CO2, Blood 24.0 mmol/L (21-32); Calcium, Blood 9.0 mg/dL (8.5-10.1); Chloride, Blood 112.0 mmol/L (98-108); Creatinine, Blood 0.79 mg/dL (0.60-1.20); Globulin, Blood 3.5 g/dL (2.2-4.0); Glucose, Blood 101.0 mg/dL (70-99); Potassium, Blood 3.8 mmol/L (3.5-5.5); Sodium, Blood 140.0 mmol/L (136-145); Total Protein, Blood 6.9 g/dL (6.4-8.2)
[2024-12-30 08:00] VITALS: BP 177/80
== END 2024-12-30 08:09 | disposition home or self-care (01) ==
LOC: ER 05:10
PROVIDERS: Emergency Medicine
DX: Z03.6 Encounter for observation for suspected toxic effect from ingested substance ruled out (principal); I48.91 Unspecified atrial fibrillation; G30.9 Alzheimer's disease, unspecified; F02.A0 Dementia in other diseases classified elsewhere, mild, without behavioral disturbance, psychotic disturbance, mood disturbance, and anxiety; E78.00 Pure hypercholesterolemia, unspecified; I10 Essential (primary) hypertension; K21.9 Gastro-esophageal reflux disease without esophagitis; Z88.2 Allergy status to sulfonamides; Z91.041 Radiographic dye allergy status; Z79.01 Long term (current) use of anticoagulants; Z79.899 Other long term (current) drug therapy
CPT/HCPCS: 70450; 72125; 80053; 84484; 85025; 85610; 99284-25

== ENCOUNTER 2025-01-14 13:48 | Inpatient (IN) | payer MEDICARE ==
[~2025-01-14] VITALS: Ht 188 cm; Wt 79.4 kg
[2025-01-14] MEDS ORDERED: Ondansetron HCl 2 MG / ML 2ML Vial IV ONE ×2 (14:25→17:45)
[2025-01-14] MEDS ORDERED: Morphine Sulfate 4 MG/1 ML Injection IV ONE (14:25)
[2025-01-14 14:44] LABS: BASOPHILS ABSOLUTE AUTO 0.02 K/mm3 (0.00-0.23); BASOPHILS PERCENT AUTO 0 % (0-2); NRBC ABSOLUTE 0.00 K/mm3 (0.00-0.02); NRBC Auto 0.0 /100 WBC (0.0-0.2); RDW Coefficient Variation 12.8 % (11.7-14.2)
[2025-01-14 14:51] LABS: EOSINOPHILS ABSOLUTE AUTO 0.06 K/mm3 (0.00-0.68); EOSINOPHILS PERCENT AUTO 1 % (0-6); Hematocrit 48.3 % (37.0-53.0); Hemoglobin 16.7 g/dL (13.5-17.5); IMMATURE GRAN ABSOLUTE AUTO 0.04 K/mm3 (0.00-0.10); IMMATURE GRAN PERCENT AUTO 0 % (0-1); LYMPHOCYTES ABSOLUTE AUTO 1.34 K/mm3 (0.84-5.20); LYMPHOCYTES PERCENT AUTO 13 % (21-46); MONOCYTES ABSOLUTE AUTO 0.54 K/mm3 (0.16-1.47); MONOCYTES PERCENT AUTO 5 % (4-13); Mean Corpuscular HGB Conc 34.6 g/dL (31.5-36.5); Mean Corpuscular Volume 84 fL (80-100); NEUTROPHILS ABSOLUTE AUTO 8.67 K/mm3 (1.96-9.15); NEUTROPHILS PERCENT AUTO 81 % (41-73); RDW Standard Deviation 39.1 fL (35.1-46.3)
[2025-01-14 15:14] LABS: Platelet Count 184 K/mm3 (150-400)
[2025-01-14] MEDS ORDERED: DiphenhydrAMINE HCl 50 MG/ML 1ML Vial IV ONE (15:30)
[2025-01-14 15:34] LABS: Alanine Aminotransfer (ALT/SGP 23.0 U/L (12-78); Albumin, Blood 4.1 g/dL (3.4-5.0); Albumin/Globulin Ratio 1.0 (0.8-1.8); Anion Gap 9.0 mmol/L (3-11); Aspartate Aminotrans (AST/SGOT 20.0 U/L (12-37); Bilirubin, Total 2.0 mg/dL (0.1-1.0); Blood Urea Nitrogen 16.0 mg/dL (8-24); CO2, Blood 25.0 mmol/L (21-32); Calcium, Blood 9.5 mg/dL (8.5-10.1); Chloride, Blood 108.0 mmol/L (98-108); Creatinine, Blood 0.8 mg/dL (0.60-1.20); Globulin, Blood 4.0 g/dL (2.2-4.0); Glucose, Blood 97.0 mg/dL (70-99); Potassium, Blood 4.1 mmol/L (3.5-5.5); Sodium, Blood 138.0 mmol/L (136-145); Total Protein, Blood 8.1 g/dL (6.4-8.2)
[2025-01-14 17:38] LABS: Source, Urine Clean Catch
[2025-01-14 17:43] LABS: Bilirubin, Urine Neg (Neg); Color, Urine Yellow (P-Yellow); Glucose Qualitative, Urine Neg (Neg); Ketones, Urine 1+ (Neg); Leukocyte Esterase, Urine Neg (Neg); Protein, Urine Neg (Neg); Specific Gravity, Urine 1.010 (1.003-1.022); Urobilinogen, Urine NORM (Normal)
[2025-01-14 17:55] LABS: White Blood Cells, Urine 0-2 /hpf (0-5)
[2025-01-14] MEDS ORDERED: Ondansetron HCl 2 MG / ML 2ML Vial IV PRN (18:20)
[2025-01-14] MEDS ORDERED: NS 1,000 ML IV SCH (18:25)
[2025-01-14] MEDS ORDERED: FLU VACC TS2025(65UP)/MF59C/PF 45 MCG/0.5 ML SYRINGE IM SCH (18:25)
[2025-01-14] MEDS ORDERED: HydrALAZINE HCl 20 MG / ML 1ML Vial IV PRN ×2 (18:40→22:55)
[2025-01-14] MEDS ORDERED: Morphine Sulfate 4 MG/1 ML Injection IV PRN (18:40)
[2025-01-14] MEDS ORDERED: NS 500 ML IV ONE (19:00)
[2025-01-14 20:34] VITALS: BP 194/84
[2025-01-14 22:37] VITALS: BP 177/79
--- NOTE | 2025-01-14 22:58 | NUR ---
Hypertension Pt is very hypertensive, see vitals history from 01/14. I gave 10mg IV hydralazine Q4 as ordered and systolic was still 170 90 minutes later. I called [facility] who changed the order to Q2 for systolic > 180. I had held IV fluids d/t high BP, I asked if it's ok to give pt NS@125 as ordered as is systolic BP is currently 177 and [facility] said it is ok.
[2025-01-15 00:32] VITALS: BP 144/75
[2025-01-15 04:26] VITALS: BP 115/66
[2025-01-15 04:57] LABS: Hematocrit 45.3 % (37.0-53.0); Hemoglobin 15.5 g/dL (13.5-17.5); Mean Corpuscular HGB Conc 34.2 g/dL (31.5-36.5); Mean Corpuscular Volume 87 fL (80-100); NRBC ABSOLUTE 0.00 K/mm3 (0.00-0.02); NRBC Auto 0.0 /100 WBC (0.0-0.2); Platelet Count 208 K/mm3 (150-400); RDW Coefficient Variation 13.0 % (11.7-14.2); RDW Standard Deviation 40.5 fL (35.1-46.3)
[2025-01-15 05:12] LABS: Prothrombin Time Results 12.4 Sec (9.7-11.5)
[2025-01-15 05:21] LABS: Alanine Aminotransfer (ALT/SGP 16.0 U/L (12-78); Albumin, Blood 3.2 g/dL (3.4-5.0); Albumin/Globulin Ratio 1.0 (0.8-1.8); Anion Gap 7.0 mmol/L (3-11); Aspartate Aminotrans (AST/SGOT 12.0 U/L (12-37); Bilirubin, Total 2.1 mg/dL (0.1-1.0); Blood Urea Nitrogen 16.0 mg/dL (8-24); CO2, Blood 27.0 mmol/L (21-32); Calcium, Blood 8.7 mg/dL (8.5-10.1); Chloride, Blood 110.0 mmol/L (98-108); Creatinine, Blood 0.74 mg/dL (0.60-1.20); Globulin, Blood 3.2 g/dL (2.2-4.0); Glucose, Blood 157.0 mg/dL (70-99); Magnesium, Blood 2.0 mg/dL (1.6-2.4); Potassium, Blood 4.1 mmol/L (3.5-5.5); Sodium, Blood 140.0 mmol/L (136-145); Total Protein, Blood 6.4 g/dL (6.4-8.2)
--- NOTE | 2025-01-15 06:42 | NUR ---
Shift Summary Pt admitted to this unit from ED for SBO. He is NPO. Hx of Dementia, pt is AOx1-2, very forgetful. He did attempt OOB a few times. He is continent/incontinent, he can use the urinal standing with assistance. He abdomen is moderatly painful, medicated once with 2mg IV morphine. He was awake most of the night. He is trying to call his this AM but she is not answering the phone. Bed alarm on for safety.
[2025-01-15 08:11] VITALS: BP 133/85
[2025-01-15 08:13] VITALS: BP 133/85
[2025-01-15] MEDS ORDERED: Pantoprazole Sodium 40 MG Injection IV SCH (09:00)
[2025-01-15] MEDS ORDERED: Magnesium Hydroxide Conc 10 ML UDC PO ONE (11:00)
[2025-01-15] MEDS ORDERED: HydrALAZINE HCl 20 MG / ML 1ML Vial IV PRN (15:35)
[2025-01-15] MEDS ORDERED: Lidocaine HCl 2% Jelly 120MG/6ML SYR (20MG PER ML) TOP ONE (16:30)
[2025-01-15] MEDS ORDERED: Lidocaine 2% Jelly Uro-Jet TOP ONE (17:05)
--- NOTE | 2025-01-15 18:30 | NUR ---
SHIFT SUMMARY PATIENT ALERT AND INTERACTIVE. PATIENT ABLE TO AMBULATE WITH STAND BY ASSIST IN HALLS. PATIENT AGITATED AT START OF SHIFT. TALKING ABOUT PEOPLE SWEARING, AND NOISE. PATIENT CONFUSED AND IRRITATED WITH BEDSIDE REPORT. PATIENT STATING THAT HE WANTS TO LEAVE. PROVIDED ACTIVE LISTENING AND ATTEMPTED TO CALL . ENCOURAGED PATIENT TO WAIT FOR . PATIENT DENIED PAIN AT START OF SHIFT. AFTER EATING SOME OF HIS CLEAR LIQUID DIET FOR LUNCH, PATIENT STARTED TO HAVE CRAMPING AND PAIN IN ABD. DR BONILLA SPOKE WITH PATIENT AND FAMILY RELATED TO PLAN. NG TUBE PLACED 300 CC OF BROWN CLEAR FLUID REMOVED. PATIENT ANXIOUS BUT WILLING TO LEAVE TUBE IN AT THIS TIME. PATIENT TO HAVE SMALL BOWEL FOLLOW THROUGH TOMORROW AND POSSIBLE SURGERY AFTER. CHEST XRAY DONE AFTER PLACEMENT BECAUSE OF MINIMAL FLUID. FAMILY PRESENT DURING NG PLACEMENT.
[2025-01-15 21:02] VITALS: BP 136/116
[2025-01-15 21:04] VITALS: BP 154/100
[2025-01-16] VITALS (13 sets, daily range): BP systolic 118–178; BP diastolic 69–94
--- NOTE | 2025-01-16 04:38 | NUR ---
SHIFT SUMMARY: PT IS NPO WITH SMALL SIPS OF WATER ALLOWED. PT MEDICATED FOR PAIN ABOUT EVERY THREE HOURS FOR PAIN. PT IMPULSIVE BUT REDIRECTABLE. PT IS AOX2-3. NG TUBE IN PLACE AND PT REMINDED SEVERAL TIMES THROUGH OUT THE SHIFT NOT TO PULL ON TUBE.
--- NOTE | 2025-01-16 05:46 | NUR ---
NG TUBE: PT PULLED NG TUBE OUT. 300 OUTPUT IN TOTAL MD NOTIFIED AT 0591 ON 01/16/25
[2025-01-16] MEDS ORDERED: Bupivacaine 0.5% HCl 5 MG/ML 30MLVIAL ONE (09:48)
--- NOTE | 2025-01-16 09:51 | NUR ---
FLUSHED RIGHT HAND 22G IV SITE WITH 10NS/PATENT. WILL PLACE A NEW IV SITE FOR SURGERY.
[2025-01-16] MEDS ORDERED: FentaNYL Citrate 50 MCG/ML 2 ML Injection ONE (10:07)
[2025-01-16] MEDS ORDERED: CeFAZolin Sodium 2000 MG /100 ML BAG IV ONE (10:10)
[2025-01-16] MEDS ORDERED: Phenylephrine HCl 100 MCG/ML-NS 10MLSYR (1MG/10ML) ONE (10:19)
[2025-01-16] MEDS ORDERED: Albuterol 2.5 MG/3 ML VIAL INH PRN (10:30)
[2025-01-16] MEDS ORDERED: HYDROmorphone HCl/Pf 1MG SYR IV PRN ×2 (10:30→10:35)
[2025-01-16] MEDS ORDERED: FentaNYL Citrate 50 MCG/ML 2 ML Injection IV PRN ×2 (10:35)
[2025-01-16] MEDS ORDERED: Ondansetron HCl 2 MG / ML 2ML Vial IV PRN (10:35)
[2025-01-16] MEDS ORDERED: Ketorolac Tromethamine 30mg Vial ONE (11:07)
[2025-01-16] MEDS ORDERED: Ondansetron HCl 2 MG / ML 2ML Vial ONE (11:07)
[2025-01-16] MEDS ORDERED: Dexamethasone Sod Phos 10 MG/ML 1ML VIAL ONE (11:07)
[2025-01-16] MEDS ORDERED: Sugammadex Sodium 200 MG/2ML SDV (100 MG/ML) ONE ×2 (11:07→11:23)
--- NOTE | 2025-01-16 12:46 | NUR ---
PACU REPORT TAKEN FROM JAS. PATIENT WILL RETURN FOR POST SURG TO RM 301
[2025-01-16] MEDS ORDERED: Haloperidol Lactate Inj. 5 MG/ML Injection IV PRN (14:55)
--- NOTE | 2025-01-16 15:36 | NUR ---
TRANSFER NOTE: PATIENT TRANSFERED TO A QUIETER ROOM ON MED FLOOR DUE TO NOISE TRAFFIC IN HALLWAY BEING TOO LOUD FOR PATIENT TO REST. REPORT TO NURSE
--- NOTE | 2025-01-16 17:51 | NUR ---
PTS CLEAR LIQUID DIET WAS ADVANCED TO FULL LIQUID HE TOLERATED APPLESAUCE WELL. PT WAS REORIENTED TO SURROUNDINGS AFTER HE TRANSFERRED ROOMS AND HIS CONFUSION HAS SINCE DECREASED. CONTINUES TO BE AT THE BEDSIDE ASSISTING HIM WITH CARE TASKS. 1PA TO THE BATHROOM, GAIT CONTINUES TO BE UNSTEADY WHICH IS NOT HIS BASELINE. PT IS COOPERATIVE WITH CARE.
--- NOTE | 2025-01-17 04:01 | NUR ---
SHIFT SUMMARY PATIENT HAD NO ACUTE CHANGES. AXOX 3 WITH SPOUSE REPORTING CONFUSION AND FORGETFUL. ONE ASSIST TO BR. PIVS INTACT. TELE MONITOR SR 67. DENIES CHEST PAIN, SOB, AND N/V. VSS/AFEBRILE. SLEPT MOST OF THE SHIFT. SPOUSE STAYED OVERNIGHT. CALL LIGHT IN REACH. BED IN LOWEST POSITION AND ALARM ON. WILL CONTINUE TO MONITOR UNTIL DAY SHIFT NURSE ASSUMES CARE.
[2025-01-17 04:47] VITALS: BP 127/75
[2025-01-17 05:07] LABS: BASOPHILS ABSOLUTE AUTO 0.01 K/mm3 (0.00-0.23); BASOPHILS PERCENT AUTO 0 % (0-2); EOSINOPHILS ABSOLUTE AUTO 0.01 K/mm3 (0.00-0.68); EOSINOPHILS PERCENT AUTO 0 % (0-6); Hematocrit 39.4 % (37.0-53.0); Hemoglobin 13.3 g/dL (13.5-17.5); IMMATURE GRAN ABSOLUTE AUTO 0.01 K/mm3 (0.00-0.10); IMMATURE GRAN PERCENT AUTO 0 % (0-1); LYMPHOCYTES ABSOLUTE AUTO 0.44 K/mm3 (0.84-5.20); LYMPHOCYTES PERCENT AUTO 8 % (21-46); MONOCYTES ABSOLUTE AUTO 0.80 K/mm3 (0.16-1.47); MONOCYTES PERCENT AUTO 14 % (4-13); Mean Corpuscular HGB Conc 33.8 g/dL (31.5-36.5); Mean Corpuscular Volume 88 fL (80-100); NEUTROPHILS ABSOLUTE AUTO 4.36 K/mm3 (1.96-9.15); NEUTROPHILS PERCENT AUTO 77 % (41-73); NRBC ABSOLUTE 0.00 K/mm3 (0.00-0.02); NRBC Auto 0.0 /100 WBC (0.0-0.2); Platelet Count 174 K/mm3 (150-400); RDW Coefficient Variation 13.0 % (11.7-14.2); RDW Standard Deviation 42.3 fL (35.1-46.3)
[2025-01-17 05:31] LABS: Anion Gap 6.0 mmol/L (3-11); Blood Urea Nitrogen 28.0 mg/dL (8-24); CO2, Blood 27.0 mmol/L (21-32); Calcium, Blood 8.5 mg/dL (8.5-10.1); Chloride, Blood 109.0 mmol/L (98-108); Creatinine, Blood 0.73 mg/dL (0.60-1.20); Glucose, Blood 122.0 mg/dL (70-99); Potassium, Blood 3.5 mmol/L (3.5-5.5); Sodium, Blood 138.0 mmol/L (136-145)
[2025-01-17 07:17] VITALS: BP 127/73
[2025-01-17] MEDS ORDERED: ACET325 PO (13:17)
== END 2025-01-17 13:33 | disposition home or self-care (01) | DRG 337 ==
LOC: ER 13:48 → MEDS 18:20 → ERHOLD 18:20 → MEDS 18:20 → ENPENDDIS 01-17 12:49 → MEDS 01-17 13:33
PROVIDERS: Family Medicine; Nurse Practitioner Acute Care; Student in an Organized Health Care Education/Training Program; Surgery; ADMIT Internal Medicine
PROC: 0D9670Z Drainage of Stomach with Drainage Device, Via Natural or Artificial Opening (ICD-10-PCS; 2025-01-15)
PROC: 8E0W4CZ Robotic Assisted Procedure of Trunk Region, Percutaneous Endoscopic Approach (ICD-10-PCS; 2025-01-16)
PROC: 0DN84ZZ Release Small Intestine, Percutaneous Endoscopic Approach (ICD-10-PCS; principal; 2025-01-16 09:30)
DX: K56.50 Intestinal adhesions [bands], unspecified as to partial versus complete obstruction (principal); G30.9 Alzheimer's disease, unspecified; G70.00 Myasthenia gravis without (acute) exacerbation; I10 Essential (primary) hypertension; K21.9 Gastro-esophageal reflux disease without esophagitis; F02.A0 Dementia in other diseases classified elsewhere, mild, without behavioral disturbance, psychotic disturbance, mood disturbance, and anxiety; H91.90 Unspecified hearing loss, unspecified ear; K58.9 Irritable bowel syndrome, unspecified; D72.829 Elevated white blood cell count, unspecified; K56.2 Volvulus; M19.90 Unspecified osteoarthritis, unspecified site; I48.0 Paroxysmal atrial fibrillation; R00.1 Bradycardia, unspecified; D64.9 Anemia, unspecified; Z79.01 Long term (current) use of anticoagulants; Z88.2 Allergy status to sulfonamides; Z88.8 Allergy status to other drugs, medicaments and biological substances; Z85.46 Personal history of malignant neoplasm of prostate; Z85.820 Personal history of malignant melanoma of skin; Z97.4 Presence of external hearing-aid; Z90.79 Acquired absence of other genital organ(s)
CPT/HCPCS: 36415; 71045; 71046; 74019; 74177; 80048; 80053; 81001; 83690; 83735; 84484; 85025; 85027; 85610; 93005; 93010; 96374-59; 96375; 96376; 99285-25; A9270; J0360; J0690; J1100; J1200; J1885; J2270; J2371; J2405; J2470; J2704; J3010; J7030; J7040; J7120; Q9967

== ENCOUNTER 2025-01-19 16:37 | Inpatient (IN) | payer MEDICARE ==
[~2025-01-19] VITALS: Ht 188 cm; Wt 79.4 kg
[~2025-01-19 16:37] MED LIST changes: +ACET325 PO
[2025-01-19 17:03] LABS: BASOPHILS ABSOLUTE AUTO 0.01 K/mm3 (0.00-0.23); BASOPHILS PERCENT AUTO 0 % (0-2); EOSINOPHILS ABSOLUTE AUTO 0.04 K/mm3 (0.00-0.68); EOSINOPHILS PERCENT AUTO 1 % (0-6); Hematocrit 41.6 % (37.0-53.0); Hemoglobin 14.2 g/dL (13.5-17.5); IMMATURE GRAN ABSOLUTE AUTO 0.01 K/mm3 (0.00-0.10); IMMATURE GRAN PERCENT AUTO 0 % (0-1); LYMPHOCYTES ABSOLUTE AUTO 0.74 K/mm3 (0.84-5.20); LYMPHOCYTES PERCENT AUTO 13 % (21-46); MONOCYTES ABSOLUTE AUTO 0.59 K/mm3 (0.16-1.47); MONOCYTES PERCENT AUTO 10 % (4-13); Mean Corpuscular HGB Conc 34.1 g/dL (31.5-36.5); Mean Corpuscular Volume 86 fL (80-100); NEUTROPHILS ABSOLUTE AUTO 4.44 K/mm3 (1.96-9.15); NEUTROPHILS PERCENT AUTO 76 % (41-73); NRBC ABSOLUTE 0.00 K/mm3 (0.00-0.02); NRBC Auto 0.0 /100 WBC (0.0-0.2); Platelet Count 198 K/mm3 (150-400); RDW Coefficient Variation 12.4 % (11.7-14.2); RDW Standard Deviation 38.6 fL (35.1-46.3)
[2025-01-19 17:21] LABS: Alanine Aminotransfer (ALT/SGP 22.0 U/L (12-78); Albumin, Blood 3.2 g/dL (3.4-5.0); Albumin/Globulin Ratio 0.9 (0.8-1.8); Anion Gap 10.0 mmol/L (3-11); Aspartate Aminotrans (AST/SGOT 16.0 U/L (12-37); Bilirubin, Total 2.3 mg/dL (0.1-1.0); Blood Urea Nitrogen 17.0 mg/dL (8-24); CO2, Blood 28.0 mmol/L (21-32); Calcium, Blood 8.7 mg/dL (8.5-10.1); Chloride, Blood 105.0 mmol/L (98-108); Creatinine, Blood 0.75 mg/dL (0.60-1.20); Globulin, Blood 3.5 g/dL (2.2-4.0); Glucose, Blood 110.0 mg/dL (70-99); Potassium, Blood 3.3 mmol/L (3.5-5.5); Sodium, Blood 140.0 mmol/L (136-145); Total Protein, Blood 6.7 g/dL (6.4-8.2)
[2025-01-19] MEDS ORDERED: DiphenhydrAMINE HCl 50 MG/ML 1ML Vial IV ONE (18:10)
[2025-01-20] VITALS (8 sets, daily range): BP systolic 120–190; BP diastolic 59–93
[2025-01-20] MEDS ORDERED: HydrALAZINE HCl 20 MG / ML 1ML Vial IV PRN (00:35)
[2025-01-20] MEDS ORDERED: LORazepam 2 MG/ML 1ML Injection IV PRN (01:35)
[2025-01-20] MEDS ORDERED: Morphine Sulfate 4 MG/1 ML Injection IV PRN ×2 (01:35→22:40)
[2025-01-20] MEDS ORDERED: LORazepam 2 MG/ML 1ML Injection IV ONE ×2 (01:40→22:30)
--- NOTE | 2025-01-20 02:41 | NUR ---
NURSE NOTE PATIENT WAS ADMITTED TO 303 FROM ED. PATIENT WAS AGITATED DURING ASSESSMENT. PATIENT ATTEMPTED TO LEAVE. PATIENT WAS NOT SAFE ENOUGH TO LEAVE. THIS RN CALLED CHARGE NURSE AND PROVIDER. 2MD HOLD INITIATED. PATIENT WAS PUT INTO RESTRAINTS FOR SAFETY. PATIENT WAS MOVED TO 345. THIS RN GAVE REPORT TO JUAN C SHETTY.
[2025-01-20 04:54] LABS: BASOPHILS ABSOLUTE AUTO 0.01 K/mm3 (0.00-0.23); BASOPHILS PERCENT AUTO 0 % (0-2); EOSINOPHILS ABSOLUTE AUTO 0.00 K/mm3 (0.00-0.68); EOSINOPHILS PERCENT AUTO 0 % (0-6); Hematocrit 40.2 % (37.0-53.0); Hemoglobin 13.7 g/dL (13.5-17.5); IMMATURE GRAN ABSOLUTE AUTO 0.02 K/mm3 (0.00-0.10); IMMATURE GRAN PERCENT AUTO 0 % (0-1); LYMPHOCYTES ABSOLUTE AUTO 0.35 K/mm3 (0.84-5.20); LYMPHOCYTES PERCENT AUTO 7 % (21-46); MONOCYTES ABSOLUTE AUTO 0.12 K/mm3 (0.16-1.47); MONOCYTES PERCENT AUTO 3 % (4-13); Mean Corpuscular HGB Conc 34.1 g/dL (31.5-36.5); Mean Corpuscular Volume 88 fL (80-100); NEUTROPHILS ABSOLUTE AUTO 4.28 K/mm3 (1.96-9.15); NEUTROPHILS PERCENT AUTO 90 % (41-73); NRBC ABSOLUTE 0.00 K/mm3 (0.00-0.02); NRBC Auto 0.0 /100 WBC (0.0-0.2); Platelet Count 183 K/mm3 (150-400); RDW Coefficient Variation 12.3 % (11.7-14.2); RDW Standard Deviation 39.5 fL (35.1-46.3)
[2025-01-20 05:12] LABS: Anion Gap 9.0 mmol/L (3-11); Blood Urea Nitrogen 17.0 mg/dL (8-24); CO2, Blood 25.0 mmol/L (21-32); Calcium, Blood 8.7 mg/dL (8.5-10.1); Chloride, Blood 108.0 mmol/L (98-108); Creatinine, Blood 0.64 mg/dL (0.60-1.20); Glucose, Blood 150.0 mg/dL (70-99); Potassium, Blood 3.9 mmol/L (3.5-5.5); Sodium, Blood 138.0 mmol/L (136-145)
--- NOTE | 2025-01-20 05:59 | NUR ---
ASSUMED CARE AT 0200 FROM NICOLETTE RN, PT WAS ON LINCOLN RESTRAINT AND HAD BEEN GIVEN 2MG ATIVAN. PT WAS UNPLEASANTLY CONFUSED AND CURSING AT STAFF. PATIENT BEGAN TO RELAX AND RESTRAINTS WERE REMOVED AT 0400, PT BEGAN TO BECOME ANXIOUS AT 0540 AND WAS GIVEN 1MG ATIVAN PER MAR. PT BEGAN TO RELAX FOR THE REMAINDER OF THE SHIFT.
--- NOTE | 2025-01-20 07:35 | NUR ---
SUMMARY Patient agitation and agression controlled well with prn meds. 1:1 sitter at bedside throughout the night since 2MD hold placed and patient transferred into SCU Rm 345. Bed alarm on. Call light in reach.
--- NOTE | 2025-01-20 09:00 | NUR ---
pt laying in bed, attempting to get oob and pushing through varitype operator, a/o to self, but does attempt to cooperate with care, follows some commands, wants to touch everthing near him, lungs are clear t/o, on r/a, reps even and unlabored, no cough noted, hrr, tele in place running sb in the 50's, no edema noted, ppp +1, cap refill<3 sec, vs stable, afebrile, piv to rfa site is clear and patent, btx4, abd flat soft nontender, voids via urinal, also has briefs in place, becomes agitated when he needs to void, skin has bruising to r flank secondary to previous surgery, no open areas, ligia mabry, call light in reach, but doesn't use.
[2025-01-20] MEDS ORDERED: NS 250 ML IV PRN (14:55)
[2025-01-20] MEDS ORDERED: Ampicillin Sod/Sulbactam Sod 3 GM in NS 100 ML IV SCH ×2 (15:00→22:59)
--- NOTE | 2025-01-20 18:38 | NUR ---
pt has been confused throughout the day, a few times has been impulsive and got oob without calling, but is cooperative with redirecting, bed alarm activated at all times, his spouce came in and spent half the day with him, she said he was hallucinating, this nurse did not whitness that. no further changes this shift. call light in reach.
[2025-01-21 00:14] VITALS: BP 159/80
[2025-01-21 04:08] VITALS: BP 107/61
--- NOTE | 2025-01-21 05:26 | NUR ---
BUSINESS CASE ANALYST SUMMARY WITH HOSPITALIST CONTACT. PT A/OX TO SELF. AT BEDSIDE WITH PT T/O THE NIGHT. PT WAKEFUL T/O THE NIGHT UNTIL APOX 0200 WHEN HE WAS ABLE TO FALL ASLEEP. PT ANXIOUS AND MANY REPEAT ATTEMPTS OOB IMPULSIVELY. PT AGITATED AND VOCALIZING HE IS GOING HOME. PT DIFFICULT TO REDIRECT. EVEN HIS WAS UNABLE TO REDIRECT PT. CALLED HOSPITALIST AND SPOKE WITH DR TRIMBLE. NEW ORDER FOR 1X DOSE OF 1MG ATIVAN NOW. DR INSTRUCTED TO GIVE ATIVAN FIRST AND IF NO IMPROVMENT IN 45MINS OK TO GIVE PRN ZYPREXA. GAVE PT ATIVAN AT 2244 WITH LITTLE EFFECT. THEN GAVE THE ZYPREXA AT 0014. PT AGITATION IMPROVED AND THEN ABLE TO SLEEP AT APROX 0200. NOTED PT SKIN HAVING FLUSHED/RASH APPEARANCE IN FACE, BACK, AND ABD. PT DENIES DISCOMFORT OR ITCHING. PT IS ENDORSING PAIN TO LOWER LEFT ABD THAT INTENSIFIED WITH PALPATION TO THE AREA. BOWEL TONES ACTIVE X4. THE PATIENT'S IS EXPRESSING CONCERN FOR PT'S AGITATION. WHEN DESCRIBING THE DIFFERENCE BETWEN PT BEHAVIOR NOW AND AT HOME SHE SAID IT IS "SCARY" AND EXPRESSED FEARS OF NOT BEING ABLE TO CARE FOR THE PATIENT. EDUCATED ABOUT EFFECT OF HOSPITAL STAY ON PT'S WITH DEMENTIA.
[2025-01-21 07:43] VITALS: BP 140/71
[2025-01-21 08:17] LABS: BASOPHILS ABSOLUTE AUTO 0.02 K/mm3 (0.00-0.23); BASOPHILS PERCENT AUTO 0 % (0-2); EOSINOPHILS ABSOLUTE AUTO 0.09 K/mm3 (0.00-0.68); EOSINOPHILS PERCENT AUTO 1 % (0-6); Hematocrit 42.4 % (37.0-53.0); Hemoglobin 14.6 g/dL (13.5-17.5); IMMATURE GRAN ABSOLUTE AUTO 0.03 K/mm3 (0.00-0.10); IMMATURE GRAN PERCENT AUTO 0 % (0-1); LYMPHOCYTES ABSOLUTE AUTO 0.72 K/mm3 (0.84-5.20); LYMPHOCYTES PERCENT AUTO 9 % (21-46); MONOCYTES ABSOLUTE AUTO 0.72 K/mm3 (0.16-1.47); MONOCYTES PERCENT AUTO 9 % (4-13); Mean Corpuscular HGB Conc 34.4 g/dL (31.5-36.5); Mean Corpuscular Volume 87 fL (80-100); NEUTROPHILS ABSOLUTE AUTO 6.87 K/mm3 (1.96-9.15); NEUTROPHILS PERCENT AUTO 81 % (41-73); NRBC ABSOLUTE 0.00 K/mm3 (0.00-0.02); NRBC Auto 0.0 /100 WBC (0.0-0.2); Platelet Count 214 K/mm3 (150-400); RDW Coefficient Variation 12.6 % (11.7-14.2); RDW Standard Deviation 39.9 fL (35.1-46.3)
[2025-01-21 08:37] LABS: Anion Gap 9.0 mmol/L (3-11); Blood Urea Nitrogen 13.0 mg/dL (8-24); CO2, Blood 28.0 mmol/L (21-32); Calcium, Blood 8.7 mg/dL (8.5-10.1); Chloride, Blood 109.0 mmol/L (98-108); Creatinine, Blood 0.65 mg/dL (0.60-1.20); Glucose, Blood 93.0 mg/dL (70-99); Potassium, Blood 3.3 mmol/L (3.5-5.5); Sodium, Blood 143.0 mmol/L (136-145)
[2025-01-21] MEDS ORDERED: Enoxaparin 40 MG/0.4 ML SYR SC SCH (09:00)
[2025-01-21 11:30] VITALS: BP 159/60
[2025-01-21 15:19] VITALS: BP 170/91
--- NOTE | 2025-01-21 17:58 | NUR ---
PATIENT STARTED THE MORNING BY PULLING OUT ANOTHER IV. UNABLE TO BE REDIRECTED, WITH SOMEWHAT SLURRED SHORT NON SENSICAL ANSWERS. FIDGITY AND LATHARGIC. NOTIFIED AND ORDER FOR MITTENS RECEIVED. LUNGS HAVE CRACKELS IN BILATERAL BASES. TELE SHOWS PULSE IN THE LOW [address] OR A[address]KE. [address] NOTIFIED. HE HAS ACTIVE BOWEL SOUNDS AND ABDOMEN IS SOFT . PATIENT IS A DIFFICULT STICK AND A POWER GLIDE WAS PUT IN FOR IV MEDS. AT BEDSIDE MOST OF DAY. PATIENT IS INCONT OF BLADDER, SO DIFFICULT TO DO A POST VOID. AFTER TRYING TO VOID IN URINAL BLADDER SCAN SHOWED 330. MEDICATION ADJUSTMENTS MADE BY AND GI ADVANCED DIET.
[2025-01-21] MEDS ORDERED: Docusate Sodium/Senna 1 Tab PO PRN (18:35)
[2025-01-21] MEDS ORDERED: Polyethylene Glycol 3350 17 gm PO PRN (18:35)
[2025-01-21 19:15] VITALS: BP 164/84
--- NOTE | 2025-01-21 20:39 | NUR ---
RESTRAINTS PT ATTEMPTING OOB, AGITATED, AND NOT REDIRECTABLE. PT WAS PLACED IN MITTS PREVIOUSLY DUE TO PULLING ON LINES. ASSISTED ASSIGNED METER CHANGES RECORDS CLERK TO INITIATE LINCOLN VEST AND REMOVED MITTS AT 1999. OBTAINED ORDER FROM HOSPITALIST/MONIQUE AT 2029.
[2025-01-22 00:28] VITALS: BP 141/84
[2025-01-22] MEDS ORDERED: FentaNYL Citrate 50 MCG/ML 2 ML Injection IV ONE (00:45)
[2025-01-22] MEDS ORDERED: Haloperidol Lactate Inj. 5 MG/ML Injection IV ONE (00:50)
--- NOTE | 2025-01-22 03:14 | NUR ---
SHIFT SUMMARY: PT IS ALERT AND ORIENTED TO SELF AND IS NOT REDIRECTABLE. PT BECAME AGGITATED AND WAS CLIMBING OUT OF BED AND BECAME COMBATIVE WHEN ATTEMPTING TO REDIRECT PT. LINCOLN VEST WAS PLACED AND ORDERED OBTAINED. RESTRAINT ORDER ENDS AT 2038 ON 01/22/25. ZYPREXA WAS ALSO GIVEN TO PT. MEDICATION WAS INEFFECTIVE AND ORDER FOR FENTNYAL AND HALDOL RECEVIED. ABOUT TWO HOURS AFTER GIVING THESE MEDS PT FINALLY STOPPED TRYING TO GET OUT OF BED AND RELAXED. PT REFUSED TO TAKE ORAL MEDICATION SO ANY BOWEL CARE MEDS ORDERED WERE UNABLE TO BE GIVEN DUE TO PT REFUSING.
[2025-01-22 05:58] VITALS: BP 167/94
[2025-01-22 07:09] VITALS: BP 168/86
[2025-01-22 11:06] VITALS: BP 157/77
[2025-01-22 15:47] VITALS: BP 134/72
[2025-01-22] MEDS ORDERED: Haloperidol Lactate Inj. 5 MG/ML Injection IV PRN (18:50)
[2025-01-22 21:17] VITALS: BP 168/69
--- NOTE | 2025-01-22 23:48 | NUR ---
PER DR. ENRIQUE'S DOCTOR NOTE PT WAS RELEASED FROM HIS 2 MD HOLD ON 01/20 AT 1411.
[2025-01-23 00:42] VITALS: BP 149/74
[2025-01-23 05:01] LABS: BASOPHILS ABSOLUTE AUTO 0.01 K/mm3 (0.00-0.23); BASOPHILS PERCENT AUTO 0 % (0-2); EOSINOPHILS ABSOLUTE AUTO 0.12 K/mm3 (0.00-0.68); EOSINOPHILS PERCENT AUTO 2 % (0-6); Hematocrit 39.5 % (37.0-53.0); Hemoglobin 13.6 g/dL (13.5-17.5); IMMATURE GRAN ABSOLUTE AUTO 0.03 K/mm3 (0.00-0.10); IMMATURE GRAN PERCENT AUTO 1 % (0-1); LYMPHOCYTES ABSOLUTE AUTO 0.91 K/mm3 (0.84-5.20); LYMPHOCYTES PERCENT AUTO 15 % (21-46); MONOCYTES ABSOLUTE AUTO 0.54 K/mm3 (0.16-1.47); MONOCYTES PERCENT AUTO 9 % (4-13); Mean Corpuscular HGB Conc 34.4 g/dL (31.5-36.5); Mean Corpuscular Volume 88 fL (80-100); NEUTROPHILS ABSOLUTE AUTO 4.42 K/mm3 (1.96-9.15); NEUTROPHILS PERCENT AUTO 73 % (41-73); NRBC ABSOLUTE 0.00 K/mm3 (0.00-0.02); NRBC Auto 0.0 /100 WBC (0.0-0.2); Platelet Count 212 K/mm3 (150-400); RDW Coefficient Variation 12.9 % (11.7-14.2); RDW Standard Deviation 41.2 fL (35.1-46.3)
--- NOTE | 2025-01-23 05:21 | NUR ---
SHIFT SUMMARY ADMITTED FOR SBO VS. ILEUS, NOW RESOLVED. DNR CODE. PLAN IS FOR PLACEMENT. TELEMETRY: KATHIA @ 56 BPM. POWERGLIDE IN LUE. PSYCHIATRIC CONSULT IS DR. BELLAMY. REGULAR DIET. ON RA. INCONTINENT/CONTINENT. THIS SHIFT HE WAS REFUSING MEDS, PARANOIA NOTED. COOPERATIVE HOWEVER WITH ATTENDS CHANGE AND LAB DRAW.
[2025-01-23 07:10] VITALS: BP 153/76
[2025-01-23 10:21] LABS: Alanine Aminotransfer (ALT/SGP 28.0 U/L (12-78); Albumin, Blood 3.0 g/dL (3.4-5.0); Albumin/Globulin Ratio 0.9 (0.8-1.8); Anion Gap 7.0 mmol/L (3-11); Aspartate Aminotrans (AST/SGOT 20.0 U/L (12-37); Bilirubin, Total 1.9 mg/dL (0.1-1.0); Blood Urea Nitrogen 18.0 mg/dL (8-24); CO2, Blood 29.0 mmol/L (21-32); Calcium, Blood 8.5 mg/dL (8.5-10.1); Chloride, Blood 109.0 mmol/L (98-108); Creatinine, Blood 0.81 mg/dL (0.60-1.20); Globulin, Blood 3.5 g/dL (2.2-4.0); Glucose, Blood 122.0 mg/dL (70-99); Potassium, Blood 3.2 mmol/L (3.5-5.5); Sodium, Blood 142.0 mmol/L (136-145); Total Protein, Blood 6.5 g/dL (6.4-8.2)
[2025-01-23 11:19] VITALS: BP 112/73
--- NOTE | 2025-01-23 11:46 | NUR ---
NOTE AT BEDSIDE, PT REPORTS TAKING ELIQUIS 5MG BID. THIS RN NOTICED PT NOT GETTING THAT MED HERE. REPORTED TO DR. LEES. DR. LEES REPORTED "WILL DISCUSS WITH PT WHEN I ROUND." PT REF LOVENOX AND PEPCID THIS AM.
[2025-01-23 16:01] VITALS: BP 121/71
--- NOTE | 2025-01-23 18:20 | NUR ---
SHIFT SUMMARY PT A&OX1. KNOWS NAME AND BIRTHDAY. ORIENTED TO FAMILY. PT HAS HX OF DEMENTIA. PT MENTATION WAXES AND WANES. PT REPORTS NO CHEST PAIN/GENERALIZED PAIN/SOB. VSS. INCENTIVE SPIROMETER AT BEDSIDE. AT BEDSIDE THIS AM. ELIQUIS RESTARTED TODAY. PT HAD PO POTASSIUM SCHEDULED. PT COOPERATIVE AND PLEASANT. PT REPORTED VISUAL HALLUCINATION. PT WORKED WITH PHYSICAL THERAPY AND OCCUPATIONAL THERAPY. PT IS 1P ASSIST WITH WALKER AND GB. PT ON TELE. PT CONT/INC. PT IN BED, BED IN LOWEST POSITION CALL LIGHT IN REACH. BED ALARM ON.
[2025-01-23 19:02] VITALS: BP 117/69
--- NOTE | 2025-01-24 03:32 | NUR ---
SHIFT SUMMARY ADMITTED FOR SBO, NOW RESOLVED. DNR CODE. AWAITING PLACEMENT. 1 ASSIST W/FWW, UNSTEADY. A&O X1-2. MENTAL STATUS FLUXUATES. REFUSED MEDS THIS SHIFT, PARANOIA NOTED. HE DID AGREE TO GET BACK INTO BED AFTER HE EXITED IT. POWERGLIDE IN E. PSYCHIATRIC CONSULT IS DR. BELLAMY. TELEMETRY: BRADYCARDIA @ 54 BPM. REGULAR DIET. ON RA.
[2025-01-24 04:49] VITALS: BP 168/78
[2025-01-24 07:48] VITALS: BP 148/78
--- NOTE | 2025-01-24 12:18 | NUR ---
REPORTS MID L ABDOMENAL TO EPIGASTRIC DISCOMFORT AT AN 8/10. MORNING REFUSED PEPSIDE OFFERED AND PT ACCETPED. ASSISTED BACK TO BED FOR COMFORT.
[2025-01-24 15:13] LABS: BASOPHILS ABSOLUTE AUTO 0.01 K/mm3 (0.00-0.23); BASOPHILS PERCENT AUTO 0 % (0-2); EOSINOPHILS ABSOLUTE AUTO 0.04 K/mm3 (0.00-0.68); EOSINOPHILS PERCENT AUTO 0 % (0-6); Hematocrit 40.3 % (37.0-53.0); Hemoglobin 13.8 g/dL (13.5-17.5); IMMATURE GRAN ABSOLUTE AUTO 0.06 K/mm3 (0.00-0.10); IMMATURE GRAN PERCENT AUTO 1 % (0-1); LYMPHOCYTES ABSOLUTE AUTO 0.59 K/mm3 (0.84-5.20); LYMPHOCYTES PERCENT AUTO 6 % (21-46); MONOCYTES ABSOLUTE AUTO 0.57 K/mm3 (0.16-1.47); MONOCYTES PERCENT AUTO 6 % (4-13); Mean Corpuscular HGB Conc 34.2 g/dL (31.5-36.5); Mean Corpuscular Volume 88 fL (80-100); NEUTROPHILS ABSOLUTE AUTO 8.55 K/mm3 (1.96-9.15); NEUTROPHILS PERCENT AUTO 87 % (41-73); NRBC ABSOLUTE 0.00 K/mm3 (0.00-0.02); NRBC Auto 0.0 /100 WBC (0.0-0.2); Platelet Count 225 K/mm3 (150-400); RDW Coefficient Variation 12.8 % (11.7-14.2); RDW Standard Deviation 41.6 fL (35.1-46.3)
[2025-01-24 15:16] VITALS: BP 155/75
[2025-01-24 15:59] LABS: Alanine Aminotransfer (ALT/SGP 42.0 U/L (12-78); Albumin, Blood 3.0 g/dL (3.4-5.0); Albumin/Globulin Ratio 0.9 (0.8-1.8); Anion Gap 5.0 mmol/L (3-11); Aspartate Aminotrans (AST/SGOT 26.0 U/L (12-37); Bilirubin, Total 1.2 mg/dL (0.1-1.0); Blood Urea Nitrogen 21.0 mg/dL (8-24); CO2, Blood 31.0 mmol/L (21-32); Calcium, Blood 8.6 mg/dL (8.5-10.1); Chloride, Blood 108.0 mmol/L (98-108); Creatinine, Blood 0.86 mg/dL (0.60-1.20); Globulin, Blood 3.2 g/dL (2.2-4.0); Glucose, Blood 120.0 mg/dL (70-99); Magnesium, Blood 2.2 mg/dL (1.6-2.4); Potassium, Blood 3.4 mmol/L (3.5-5.5); Sodium, Blood 141.0 mmol/L (136-145); Total Protein, Blood 6.2 g/dL (6.4-8.2)
--- NOTE | 2025-01-24 17:46 | NUR ---
NOTE DR. LEES CALLED THIS RN TO NOTIFY PEPCID IV CHANGED TO ORAL. DR. LEES ASKED THIS RN TO VERIFY MEDS WITH . THIS RN CALLED PT TO VERIFY MEDS. MEDS RECONSILED. REPORTED "PT NOT ON BP MEDS." THIS RN REPORTED TO DR. LEES.
--- NOTE | 2025-01-24 17:51 | NUR ---
SHIFT SUMMARY PT A&OX1. PT KNOWS NAME AND BIRTHDAY, ORIENTED TO FAMILY. PT HAS HX OF DEMENTIA, PT MENTATION WAXES AND WANES. PT REPORTS NO CHEST PAIN/GENERALIZED PAIN/SOB. VSS. INCENTIVE SPIROMETER AT BEDSIDE. AT BEDSIDE THIS AM. THIS AM, TOOK PT IN WHEELCHAIR, WHEELED PT AROUND ON FLOOR. PT HAD PO POTASSIUM SCHEDULED. PT COOPERATIVE AND PLEASANT. PT IS IMPULSIVE. PT WORKED WITH OCCUPATIONAL THERAPY, WAS ABLE TO WALK DOWN THE MARTINEZ AND BACK WITH THEM WITH 1P ASSIST WITH FWW, PT ON TELE, NO TELE REPORTS, PT CONT/INC. PT IN BED, BED IN LOWEST POSITION, CALL LIGHT IN REACH, BED ALARM ON.
[2025-01-24 19:24] VITALS: BP 107/65
[2025-01-24 23:46] VITALS: BP 151/85
[2025-01-25 03:54] VITALS: BP 184/79
--- NOTE | 2025-01-25 06:41 | NUR ---
SHIFT SUMMARY A&OX1-4. INTERMITTENT CONFUSION. PT WAS ABLE TO CALL WHEN NEEDING TO USE THE RESTROOM AND WAS ASSISTED TO THE BATHROOM W/GB AND FWW. DIFFICULT TO REDIRECT AT TIMES. HALDOL GIVEN PRN FOR AGITATION. AT ONE POINT SECURITY WAS CALLED FOR SAFETY OF PT AND CONCERN FOR FALL RISK. PT WAS ABLE TO GET BACK INTO BED AND REMAIN SAFE. PT DOES HAVE SOME BRUISING ON LEFT ABD/FLANK AREA. SPOUSE REPORTS THIS IS FROM THE ABD SURGERY APPROX. 1 WEEK AGO. PICTURES IN CHART. CURRENTLY PT RESTING IN BED AT LOWEST POSITION WITH HOB ELEVATED AND CALL LIGHT WITHIN REACH.
[2025-01-25 07:25] VITALS: BP 152/74
[2025-01-25 11:29] VITALS: BP 128/70
[2025-01-25 15:56] VITALS: BP 181/82
--- NOTE | 2025-01-25 16:50 | NUR ---
ZYPREXA IM PT AT BEDSIDE. SHE HELPED HIM SHOWER. THEY HAD A PLEASANT AFTERNOON UNTIL ABOUT 1600. HIS WORDS STARTED TO GET MORE AGGRESSIVE. HE WAS LESS DIRECTABLE. STARTED CLIMBING OOB. HE FISTED HIS HANDS-TOOK A SWING AT HIS . REFUSED PHYSICAL THERAPY AND BALLED UP HIS FISTES AT THE THERAPIST. MEDICATED WITH ZYPREXA 5MG IM. PT CURRENTLY RESTING QUIETLY WITH HIS EYES CLOSED. BED ALARM ON. PT HAS NOT NAPPED OR RESTED ALL DAY. CARE ONGOING.
[2025-01-25 19:26] VITALS: BP 129/80
[2025-01-25] MEDS ORDERED: LORazepam 2 MG/ML 1ML Injection IV ONE (20:15)
[2025-01-26 00:34] VITALS: BP 146/97
--- NOTE | 2025-01-26 04:36 | NUR ---
SHIFT SUMMARY PATIENT A/O X1-4, INTERMITTENT CONFUSION. AT THE BEGINING OF THE SHIFT PATIENT WAS AGGITATED AND ATTEMPTING TO GET OOB, PATIENT WAS NON-DIRECTABLE AND THIS RN GAVE HALDOL AT 1944 PER EMAR. APPROX 15 MINS LATER PATIENT CONTINUED TO ATTEMPT TO GET OOB AND WAS COMBATIVE TOWARDS NURSING STAFF. LINCOLN VEST WAS INITIATED AND CALLED PROVIDER FOR ORDERS, ONE TIME ORDER OF IV ATIVAN GIVEN PER PROVIDER ORDERS AT 2037. REMOVED VEST RESTRAINT AT 2144 PATIENT WAS RESTING COMFORTABLY IN BED AND HAS BEEN SLEEPING SINCE. REPOSITIONED PRN AND VITAL SIGNS STABLE. TELE REPORTS SINUS KATHIA IN THE 50'S, NO SOB, CHEST PAIN OR PRESSURE NOTED. NO ACUTE CHANGES THROUGHOUT THE SHIFT. BED IN LOWEST POSITION, BED ALARM ON FOR SAFETY, CALL LIGHT IN REACH. WILL REPORT TO DAY SHIFT RN.
[2025-01-26 05:29] VITALS: BP 185/110
[2025-01-26 06:33] LABS: BASOPHILS ABSOLUTE AUTO 0.02 K/mm3 (0.00-0.23); BASOPHILS PERCENT AUTO 0 % (0-2); EOSINOPHILS ABSOLUTE AUTO 0.16 K/mm3 (0.00-0.68); EOSINOPHILS PERCENT AUTO 2 % (0-6); Hematocrit 39.8 % (37.0-53.0); Hemoglobin 13.4 g/dL (13.5-17.5); IMMATURE GRAN ABSOLUTE AUTO 0.09 K/mm3 (0.00-0.10); IMMATURE GRAN PERCENT AUTO 1 % (0-1); LYMPHOCYTES ABSOLUTE AUTO 0.78 K/mm3 (0.84-5.20); LYMPHOCYTES PERCENT AUTO 7 % (21-46); MONOCYTES ABSOLUTE AUTO 0.54 K/mm3 (0.16-1.47); MONOCYTES PERCENT AUTO 5 % (4-13); Mean Corpuscular HGB Conc 33.7 g/dL (31.5-36.5); Mean Corpuscular Volume 89 fL (80-100); NEUTROPHILS ABSOLUTE AUTO 9.01 K/mm3 (1.96-9.15); NEUTROPHILS PERCENT AUTO 85 % (41-73); NRBC ABSOLUTE 0.00 K/mm3 (0.00-0.02); NRBC Auto 0.0 /100 WBC (0.0-0.2); Platelet Count 218 K/mm3 (150-400); RDW Coefficient Variation 12.9 % (11.7-14.2); RDW Standard Deviation 42.1 fL (35.1-46.3)
[2025-01-26 06:51] LABS: Alanine Aminotransfer (ALT/SGP 53.0 U/L (12-78); Albumin, Blood 2.9 g/dL (3.4-5.0); Albumin/Globulin Ratio 0.9 (0.8-1.8); Anion Gap 7.0 mmol/L (3-11); Aspartate Aminotrans (AST/SGOT 29.0 U/L (12-37); Bilirubin, Total 1.2 mg/dL (0.1-1.0); Blood Urea Nitrogen 14.0 mg/dL (8-24); CO2, Blood 28.0 mmol/L (21-32); Calcium, Blood 8.3 mg/dL (8.5-10.1); Chloride, Blood 112.0 mmol/L (98-108); Creatinine, Blood 0.69 mg/dL (0.60-1.20); Globulin, Blood 3.2 g/dL (2.2-4.0); Glucose, Blood 110.0 mg/dL (70-99); Potassium, Blood 3.6 mmol/L (3.5-5.5); Sodium, Blood 143.0 mmol/L (136-145); Total Protein, Blood 6.1 g/dL (6.4-8.2)
[2025-01-26 07:14] VITALS: BP 123/61
[2025-01-26] MEDS ORDERED: LORazepam 2 MG/ML 1ML Injection IV PRN (12:05)
[2025-01-26 13:55] VITALS: BP 125/62
[2025-01-26 15:32] VITALS: BP 122/70
--- NOTE | 2025-01-26 17:43 | NUR ---
NOTE PT SAT UP AT BEDSIDE WITH HIS FOR LUNCH. HE THEN ASKED TO GO LAY DOWN. 1 PERSON TRANSFER. PT REALLY DOESN'T UNDERSTAND HOW TO USE THE FWW. DID BETTER WITH OUT IT. GOT HIM SETTLED IN BED. HE RESTED FOR SEVERAL HOURS. AWAKENED EASILY FOR HIS 1400 LORAZEPAM. THEN HE RESTED UNTIL DINNER. AWAKENED EASILY FOR DINNER. SITTING UP AT BEDSIDE FOR DINNER. FEEDING HIMSLEF. NO AGGITATION OR AGGRESSION NOTED. PT RELAXED AND CONVERSANT. NOT ORIENTED CONVERSATION. HE MEANDERS HE VISITS. PT WILL CONTACT [facility] TOM[facility]ROW. BED LOW AND LOCKED. CALL [facility] WITH IN REACH. CHAIR/BED ALARM IN USE.
[2025-01-26 19:22] VITALS: BP 135/69
[2025-01-27] VITALS (7 sets, daily range): BP systolic 123–149; BP diastolic 71–105
--- NOTE | 2025-01-27 04:44 | NUR ---
SHIFT SUMMARY: PT AOX2, TO SELF AND PLACE AT TIMES. COOPERATIVE AT TIMES BUT DOESNT FOLLOW DIRECTIONS OR COMMANDS VERY WELL. IMPULSIVE BUT SLOW AND SOMETIMES REDIRECTABLE. HAS BEEN PLEASANT AND REDIRECTABLE THIS EVENING. ABLE TO STAND AND URINATE IN THE URINAL ALTHOUGH VERY UNSTEADY AND HAVING A LOT OF DEPTH PERCEPTION ISSUES WHILE ATTEMPTING TO DRINK THROUGH A STRAW. PT IN BED, BED IN LOWEST POSITION, CALL LIGHT IN REACH. CONTINUING CARE.
--- NOTE | 2025-01-27 12:06 | NUR ---
PATIENT IS AWAKE AND ALERT AND ORIENTED X4 THIS MORNING. TODAY. COOPERATIVE WITH CARE. FOLLOWING DIRECTIONS. NOT AGGESSIVE THIS SHIFT. TAKING MEDICATIONS APPROPRIATELY. WORKING WITH DIFFERENT DICIPLINES IN A COOPERATIVE MATTER. PATIENT CURRENTLY AMBULATING IN THE MARTINEZ WITH OT, FWW AND GAITBELT. HE HAS BEEN USING THE URINAL WHILE AWAKE.
--- NOTE | 2025-01-27 17:53 | NUR ---
SHIFT SUMMARY A&OX3-4 TODAY. WALKING IN HALLS, COOPERATIVE WITH CARE. PLANS TO LEAVE TO [facility] TOMORROW DUE TO LEVEL OF CARE NEEDED. PATIENT HAS BEEN PLEASANT TODAY. HE IS ON ROOM AIR, AND HE DOES HAVE TELE, STAYING BRADYCARDIC TODAY IN THE 50'S. AMBULATED IN HALLS WITH OT, FWW AND GB TODAY. CURRENTLY BEING ASSITED TO EAT DINNER, BED IS LOW WITH ALARM SET, CALL LIGHT IN REACH.
--- NOTE | 2025-01-28 04:35 | NUR ---
SHIFT SUMMARY: PT AOX2 TO SELF AND PEOPLE. PT HAS BEEN COOPERATIVE AND PLEASANT. REDIRECTABLE TO AN EXTENT BUT HAS DIFFICULTY FOLLOWING COMMANDS AT TIMES. PT HAD SOME AGITIATING AND IRITABILITY ASKING TO LEAVE AND ATTEMPTING TO EXIT BED. MEDICATED PER EMR, AND THEN HAS BEEN PLEASANT AND COOPERATIVE SINCE. SOME COMPLAINTS OF SEVERE ABD PAIN, MEDICATED PER EMR, WHICH HAS NOW RESOLVED. PT IN BED SLEEPING, BED IN LOWEST POSITION, CALL LIGHT IN REACH. CONTINUING CARE.
[2025-01-28 05:46] VITALS: BP 136/65
[2025-01-28 06:55] LABS: Alanine Aminotransfer (ALT/SGP 46.0 U/L (12-78); Albumin, Blood 3.0 g/dL (3.4-5.0); Albumin/Globulin Ratio 1.0 (0.8-1.8); Anion Gap 6.0 mmol/L (3-11); Aspartate Aminotrans (AST/SGOT 16.0 U/L (12-37); Bilirubin, Total 1.1 mg/dL (0.1-1.0); Blood Urea Nitrogen 16.0 mg/dL (8-24); CO2, Blood 28.0 mmol/L (21-32); Calcium, Blood 8.5 mg/dL (8.5-10.1); Chloride, Blood 112.0 mmol/L (98-108); Creatinine, Blood 0.88 mg/dL (0.60-1.20); Globulin, Blood 3.1 g/dL (2.2-4.0); Glucose, Blood 98.0 mg/dL (70-99); Magnesium, Blood 2.2 mg/dL (1.6-2.4); Potassium, Blood 3.9 mmol/L (3.5-5.5); Sodium, Blood 142.0 mmol/L (136-145); Total Protein, Blood 6.1 g/dL (6.4-8.2)
[2025-01-28 06:58] LABS: BASOPHILS ABSOLUTE AUTO 0.02 K/mm3 (0.00-0.23); BASOPHILS PERCENT AUTO 0 % (0-2); EOSINOPHILS ABSOLUTE AUTO 0.11 K/mm3 (0.00-0.68); EOSINOPHILS PERCENT AUTO 1 % (0-6); Hematocrit 40.6 % (37.0-53.0); Hemoglobin 13.6 g/dL (13.5-17.5); IMMATURE GRAN ABSOLUTE AUTO 0.04 K/mm3 (0.00-0.10); IMMATURE GRAN PERCENT AUTO 0 % (0-1); LYMPHOCYTES ABSOLUTE AUTO 0.93 K/mm3 (0.84-5.20); LYMPHOCYTES PERCENT AUTO 9 % (21-46); MONOCYTES ABSOLUTE AUTO 0.42 K/mm3 (0.16-1.47); MONOCYTES PERCENT AUTO 4 % (4-13); Mean Corpuscular HGB Conc 33.5 g/dL (31.5-36.5); Mean Corpuscular Volume 90 fL (80-100); NEUTROPHILS ABSOLUTE AUTO 9.39 K/mm3 (1.96-9.15); NEUTROPHILS PERCENT AUTO 86 % (41-73); NRBC ABSOLUTE 0.00 K/mm3 (0.00-0.02); NRBC Auto 0.0 /100 WBC (0.0-0.2); Platelet Count 221 K/mm3 (150-400); RDW Coefficient Variation 13.1 % (11.7-14.2); RDW Standard Deviation 43.3 fL (35.1-46.3)
[2025-01-28 07:40] VITALS: BP 139/81
[2025-01-28 11:47] VITALS: BP 166/76
[2025-01-28] MEDS ORDERED: AMLO10 PO (12:31)
[2025-01-28] MEDS ORDERED: QUET100 PO (12:31)
[2025-01-28] MEDS ORDERED: Seroquel Xr50 MG PO (12:32)
--- NOTE | 2025-01-28 14:53 | NUR ---
DISCHARGE NOTE 1410 PATIENT LEFT TO SNF FACILITY BY MEDICAL TRANSPORT IN A STABLE CONDITION. PATIENT'S SHANWA GATHERED AND LEFT WITH ALL OF THE PATIENT'S BELONGINGS.
== END 2025-01-28 14:14 | DRG 388 ==
LOC: ER 16:37 → SURS 16:38 → MEDS 16:38
PROVIDERS: Family Medicine; Internal Medicine; Physician Assistant; Student in an Organized Health Care Education/Training Program; ADMIT Student in an Organized Health Care Education/Training Program
DX: K56.609 Unspecified intestinal obstruction, unspecified as to partial versus complete obstruction (principal); G93.41 Metabolic encephalopathy; J90 Pleural effusion, not elsewhere classified; K91.89 Other postprocedural complications and disorders of digestive system; F02.811 Dementia in other diseases classified elsewhere, unspecified severity, with agitation; F02.83 Dementia in other diseases classified elsewhere, unspecified severity, with mood disturbance; K56.7 Ileus, unspecified; Z66 Do not resuscitate; I48.91 Unspecified atrial fibrillation; I10 Essential (primary) hypertension; G70.00 Myasthenia gravis without (acute) exacerbation; E78.5 Hyperlipidemia, unspecified; G30.9 Alzheimer's disease, unspecified; E87.6 Hypokalemia; R00.1 Bradycardia, unspecified; K21.9 Gastro-esophageal reflux disease without esophagitis; Z91.041 Radiographic dye allergy status; Z79.01 Long term (current) use of anticoagulants; Z88.2 Allergy status to sulfonamides; Z79.899 Other long term (current) drug therapy; Z90.79 Acquired absence of other genital organ(s); Z98.890 Other specified postprocedural states; Z87.19 Personal history of other diseases of the digestive system; Z85.46 Personal history of malignant neoplasm of prostate; Z98.41 Cataract extraction status, right eye; Z98.42 Cataract extraction status, left eye; Z85.820 Personal history of malignant melanoma of skin
CPT/HCPCS: 36415; 71046; 71260; 74177; 80048; 80053; 83735; 84145; 84484; 85025; 85379; 93005; 93010; 94760; 94762; 96365; 96366; 96367; 96372; 96374-59; 96375; 96376; 97116; 97162; 97166; 97530; 97535; 99285-25; A9270; G0378; J0295; J0360; J1200; J1630; J1650; J2060; J2270; J2919; J3010; J3480; J7050; J7120; Q9967

== ENCOUNTER 2025-03-01 08:08 | Emergency (ER) | payer MEDICARE ==
[~2025-03-01] VITALS: Ht 185.4 cm; Wt 70.3 kg
[~2025-03-01 08:08] MED LIST changes: +QUET100 PO; +Seroquel Xr50 MG PO
[2025-03-01 08:48] LABS: BASOPHILS ABSOLUTE AUTO 0.01 K/mm3 (0.00-0.23); BASOPHILS PERCENT AUTO 0 % (0-2); EOSINOPHILS ABSOLUTE AUTO 0.10 K/mm3 (0.00-0.68); EOSINOPHILS PERCENT AUTO 1 % (0-6); Hematocrit 42.1 % (37.0-53.0); Hemoglobin 14.1 g/dL (13.5-17.5); IMMATURE GRAN ABSOLUTE AUTO 0.02 K/mm3 (0.00-0.10); IMMATURE GRAN PERCENT AUTO 0 % (0-1); LYMPHOCYTES ABSOLUTE AUTO 1.07 K/mm3 (0.84-5.20); LYMPHOCYTES PERCENT AUTO 13 % (21-46); MONOCYTES ABSOLUTE AUTO 0.34 K/mm3 (0.16-1.47); MONOCYTES PERCENT AUTO 4 % (4-13); Mean Corpuscular HGB Conc 33.5 g/dL (31.5-36.5); Mean Corpuscular Volume 88 fL (80-100); NEUTROPHILS ABSOLUTE AUTO 6.84 K/mm3 (1.96-9.15); NEUTROPHILS PERCENT AUTO 82 % (41-73); NRBC ABSOLUTE 0.00 K/mm3 (0.00-0.02); NRBC Auto 0.0 /100 WBC (0.0-0.2); Platelet Count 187 K/mm3 (150-400); RDW Coefficient Variation 13.1 % (11.7-14.2); RDW Standard Deviation 42.4 fL (35.1-46.3)
[2025-03-01 09:09] LABS: Alanine Aminotransfer (ALT/SGP 19.0 U/L (12-78); Albumin, Blood 3.6 g/dL (3.4-5.0); Albumin/Globulin Ratio 1.0 (0.8-1.8); Anion Gap 9.0 mmol/L (3-11); Aspartate Aminotrans (AST/SGOT 12.0 U/L (12-37); Bilirubin, Total 1.2 mg/dL (0.1-1.0); Blood Urea Nitrogen 21.0 mg/dL (8-24); CO2, Blood 24.0 mmol/L (21-32); Calcium, Blood 8.8 mg/dL (8.5-10.1); Chloride, Blood 109.0 mmol/L (98-108); Creatinine, Blood 0.72 mg/dL (0.60-1.20); Globulin, Blood 3.6 g/dL (2.2-4.0); Glucose, Blood 103.0 mg/dL (70-99); Potassium, Blood 3.8 mmol/L (3.5-5.5); Sodium, Blood 138.0 mmol/L (136-145); Total Protein, Blood 7.2 g/dL (6.4-8.2)
[2025-03-01 11:43] VITALS: BP 116/71
== END 2025-03-01 11:51 | disposition home or self-care (01) ==
LOC: ER 08:08
PROVIDERS: Emergency Medicine
DX: R00.1 Bradycardia, unspecified (principal); K21.9 Gastro-esophageal reflux disease without esophagitis; Z88.2 Allergy status to sulfonamides; Z91.041 Radiographic dye allergy status; Z79.899 Other long term (current) drug therapy
CPT/HCPCS: 71046; 80053; 84484; 85025; 93005; 93010; 99284-25